=== PATIENT | male | born 1950 | race Caucasian/White ===

== ENCOUNTER → 2023-01-01 11:37 | Outpatient (REF) | payer OTHER, SELFPAY | LOC: WOUND 11:37 | PROVIDERS: ATTENDING PHYSICIAN Surgery; REFERRING PHYSICIAN Physician Assistant Medical | DX: I87.312 Chronic venous hypertension (idiopathic) with ulcer of left lower extremity (principal); L97.822 Non-pressure chronic ulcer of other part of left lower leg with fat layer exposed; I89.0 Lymphedema, not elsewhere classified; I87.2 Venous insufficiency (chronic) (peripheral); I48.19 Other persistent atrial fibrillation; I10 Essential (primary) hypertension; Z79.01 Long term (current) use of anticoagulants; I73.9 Peripheral vascular disease, unspecified | CPT/HCPCS: 11042 ==

== ENCOUNTER → 2023-01-08 10:34 | Outpatient (REF) | payer OTHER, SELFPAY | LOC: WOUND 10:34 | PROVIDERS: ATTENDING PHYSICIAN Surgery; REFERRING PHYSICIAN Physician Assistant Medical | DX: I87.312 Chronic venous hypertension (idiopathic) with ulcer of left lower extremity (principal); L97.822 Non-pressure chronic ulcer of other part of left lower leg with fat layer exposed; I89.0 Lymphedema, not elsewhere classified; I87.2 Venous insufficiency (chronic) (peripheral); I48.19 Other persistent atrial fibrillation; I10 Essential (primary) hypertension; Z79.01 Long term (current) use of anticoagulants; I73.9 Peripheral vascular disease, unspecified | CPT/HCPCS: 11042; 11045 ==

== ENCOUNTER → 2023-01-15 12:51 | Outpatient (REF) | payer OTHER, SELFPAY | LOC: WOUND 12:51 | PROVIDERS: ATTENDING PHYSICIAN Otolaryngology; REFERRING PHYSICIAN Physician Assistant Medical | DX: I87.312 Chronic venous hypertension (idiopathic) with ulcer of left lower extremity (principal); L97.822 Non-pressure chronic ulcer of other part of left lower leg with fat layer exposed; I89.0 Lymphedema, not elsewhere classified; I87.2 Venous insufficiency (chronic) (peripheral); I48.19 Other persistent atrial fibrillation; I10 Essential (primary) hypertension; Z79.01 Long term (current) use of anticoagulants; I73.9 Peripheral vascular disease, unspecified | CPT/HCPCS: 11042; 11045 ==

== ENCOUNTER → 2023-01-21 12:18 | Outpatient (REF) | payer OTHER, SELFPAY | LOC: WOUND 12:18 | PROVIDERS: ATTENDING PHYSICIAN Surgery; REFERRING PHYSICIAN Physician Assistant Medical | DX: I87.312 Chronic venous hypertension (idiopathic) with ulcer of left lower extremity (principal); L97.822 Non-pressure chronic ulcer of other part of left lower leg with fat layer exposed; I89.0 Lymphedema, not elsewhere classified; I87.2 Venous insufficiency (chronic) (peripheral); I48.19 Other persistent atrial fibrillation; I10 Essential (primary) hypertension; Z79.01 Long term (current) use of anticoagulants; I73.9 Peripheral vascular disease, unspecified | CPT/HCPCS: 11042; 11045 ==

== ENCOUNTER → 2023-04-23 12:05 | Outpatient (REF) | payer OTHER, SELFPAY | LOC: WOUND 12:05 | PROVIDERS: ATTENDING PHYSICIAN Surgery; REFERRING PHYSICIAN Physician Assistant Medical | DX: I87.312 Chronic venous hypertension (idiopathic) with ulcer of left lower extremity (principal); L97.822 Non-pressure chronic ulcer of other part of left lower leg with fat layer exposed; I89.0 Lymphedema, not elsewhere classified; I87.2 Venous insufficiency (chronic) (peripheral); I73.9 Peripheral vascular disease, unspecified | CPT/HCPCS: 11042; 11045; 97597; 97598; 99213 ==

== ENCOUNTER → 2023-05-14 11:39 | Outpatient (REF) | payer OTHER, SELFPAY | LOC: WOUND 11:39 | PROVIDERS: ATTENDING PHYSICIAN Surgery; FAMILY PHYSICIAN Physician Assistant Medical | DX: I87.312 Chronic venous hypertension (idiopathic) with ulcer of left lower extremity (principal); L97.822 Non-pressure chronic ulcer of other part of left lower leg with fat layer exposed; I89.0 Lymphedema, not elsewhere classified; I48.19 Other persistent atrial fibrillation; I10 Essential (primary) hypertension; Z79.01 Long term (current) use of anticoagulants; I73.9 Peripheral vascular disease, unspecified | CPT/HCPCS: 97597 ==

== ENCOUNTER → 2023-05-28 11:36 | Outpatient (REF) | payer OTHER, SELFPAY | LOC: WOUND 11:36 | PROVIDERS: ATTENDING PHYSICIAN Surgery; FAMILY PHYSICIAN Physician Assistant Medical | DX: I87.312 Chronic venous hypertension (idiopathic) with ulcer of left lower extremity (principal); L97.822 Non-pressure chronic ulcer of other part of left lower leg with fat layer exposed; I89.0 Lymphedema, not elsewhere classified; I87.2 Venous insufficiency (chronic) (peripheral); I48.19 Other persistent atrial fibrillation; I10 Essential (primary) hypertension; Z79.01 Long term (current) use of anticoagulants; I73.9 Peripheral vascular disease, unspecified | CPT/HCPCS: 99213 ==

== ENCOUNTER → 2023-06-11 12:05 | Outpatient (REF) | payer OTHER, SELFPAY | LOC: WOUND 12:05 | PROVIDERS: ATTENDING PHYSICIAN Surgery; FAMILY PHYSICIAN Physician Assistant Medical | DX: I87.312 Chronic venous hypertension (idiopathic) with ulcer of left lower extremity (principal); L97.822 Non-pressure chronic ulcer of other part of left lower leg with fat layer exposed; I89.0 Lymphedema, not elsewhere classified; I10 Essential (primary) hypertension; I73.9 Peripheral vascular disease, unspecified; Z79.01 Long term (current) use of anticoagulants | CPT/HCPCS: 99213 ==

== ENCOUNTER → 2023-07-02 11:32 | Outpatient (REF) | payer OTHER, SELFPAY | LOC: WOUND 11:32 | PROVIDERS: ATTENDING PHYSICIAN Surgery; FAMILY PHYSICIAN Physician Assistant Medical | DX: I87.312 Chronic venous hypertension (idiopathic) with ulcer of left lower extremity (principal); L97.822 Non-pressure chronic ulcer of other part of left lower leg with fat layer exposed; I89.0 Lymphedema, not elsewhere classified; I87.2 Venous insufficiency (chronic) (peripheral); I48.19 Other persistent atrial fibrillation; I10 Essential (primary) hypertension; I73.9 Peripheral vascular disease, unspecified; Z79.01 Long term (current) use of anticoagulants | CPT/HCPCS: 97597 ==

== ENCOUNTER → 2023-07-23 11:26 | Outpatient (REF) | payer OTHER, SELFPAY | LOC: WOUND 11:26 | PROVIDERS: ATTENDING PHYSICIAN Surgery; FAMILY PHYSICIAN Physician Assistant Medical | DX: I87.312 Chronic venous hypertension (idiopathic) with ulcer of left lower extremity (principal); L97.822 Non-pressure chronic ulcer of other part of left lower leg with fat layer exposed; I89.0 Lymphedema, not elsewhere classified; I87.2 Venous insufficiency (chronic) (peripheral); I48.19 Other persistent atrial fibrillation; I10 Essential (primary) hypertension; I73.9 Peripheral vascular disease, unspecified; Z79.01 Long term (current) use of anticoagulants | CPT/HCPCS: 99212 ==

== ENCOUNTER 2023-08-25 13:25 | Emergency (ER) | payer OTHER, SELFPAY ==
[2023-08-25 13:29] VITALS: BP 109/70
--- NOTE | 2023-08-25 14:59 | ED.GENMED ---
History of Present Illness
General
Chief Complaint: Fall
Source: patient and family
Exam Limitations: none
Time Seen by Provider: 08/25/23 13:49
Travel History
Have you had any contact with someone who has COVID-19?: No
Do you have any symptoms of coronavirus? Fever > 100 degrees, chills, cough, shortness of breath, sore throat, loss of taste or smell, muscle aches, or headache?: No
History of Present Illness
History of Present Illness:
73-year-old male who tripped over a curb and fell. He struck his right head. Patient complains of right hand pain. States his headache is better. Patient is on Eliquis
Past History
Past History
ED Past Medical History: Arrthythmia, HTN and Other (Thyroid cancer, diverticulosis, vomiting ulcerations, migraines)
Social History
Personal:
Phy Exam
Physical Exam
Physical Exam:
CONSTITUTIONAL Vital signs reviewed, Patient alert and oriented to person, place and time. Well-appearing
HEAD abrasion and hematoma noted to the right forehead.
EYES eyelids normal to inspection, Extraocular muscles intact, Conjunctiva normal, Sclera normal.
NECK normal range of motion, Trachea midline, no jugular venous distention. No midline tenderness. C-collar in place
RESP no respiratory distress
BACK No obvious deformities
UPPER EXTREMITY Gross Range of motion normal, gross motor strength normal. Tenderness noted to the right fourth MCP joint posteriorly
LOWER EXTREMITY Gross range of motion normal, Gross motor strength normal
NEURO Speech normal, No focal motor deficits include, Alex coma scale 15, Memory normal, Cranial Nerves intact to screening exam.
SKIN Skin warm, dry, and normal in color.
PSYCHIATRIC Patient oriented to person place and time, Normal affect.
Course
Orders/Labs/Results
Orders:
Orders
08/25/23 13:[address] [CT Head W/o Iv Contrast] Urgent
Comment:
Reason For Exam: fall -landing on head on asphault
08/25/23 13:34
Cervical Spine wo Contrast CT [CT Cervical Spine W/o Iv Contr] Urgent
Comment:
Reason For Exam: fall-head injury
08/25/23 14:33
CR Hand - Right Min 3 Views Urgent
Comment:
Reason For Exam: FALL
Vital Signs
Initial and Last Documented VS:
Initial Vital Signs
Temp Pulse Resp BP Pulse Ox
97.5 F 59 17 109/70 98
08/25/23 13:29 08/25/23 13:29 08/25/23 13:29 08/25/23 13:29 08/25/23 13:29
Last Documented Vital Signs
Temp Pulse Resp BP Pulse Ox
97.5 F 59 17 109/70 98
08/25/23 13:29 08/25/23 13:29 08/25/23 13:29 08/25/23 13:29 08/25/23 13:29
MDM/Problems Addressed
MDM/Problems Addressed:
Head injury, abrasion, hand injury
*Radiology
Radiology exam reviewed: preliminary read by ED provider (No obvious intracranial hemorrhage), radiology read reviewed and other (no hand fx)
*Pulse Oximetry
Patient hypoxic: no
*Critical Care Note
Total Time (30-74mins, 75-104mins- exclusive of procedures): Not Applicable
Data Reviewed
Source: patient and family
Prescriptions/Medications Considered But Not Given:
Considered [facility] but no evidence of intracranial hemorrhage
Patient Management
Escalation/DeEscalation of care consider admission/obs:
Head and neck imaging negative. Await hand imaging. Continue to observe
ED Attending Note
-
Portions of this chart may have been created with voice recognition software.� Occasional wrong word or��sound alike� substitutions may have occurred due to the inherent limitations of voice recognition software.
Discharge Plan
Departure
Patient Disposition: Home (Routine Discharge)
Date of Disposition: 08/25/23
Time of Disposition: 15:25
Patient with high blood pressure during this ER visit?: No
Discharge Problem:
Head injury, Contusion
Instructions: Head Injury in Adults (DC), Contusion (DC)
Prescriptions:
No Action
cod liver oil 1 CAP capsule
1 - 2 capsules PO BID
coenzyme Q10 [Co Q-10] 100 MG capsule
1 cap PO DAILY
levothyroxine 150 MCG tablet
150 mcg PO DAILY
lisinopril 40 MG tablet
40 mg PO DAILY
apixaban [Eliquis] 5 MG tablet
5 mg PO BID
dofetilide 250 MCG capsule
250 mcg PO Q12@1100,2300 Qty: 60 3RF
spironolactone 50 MG tablet
50 mg PO DAILY Qty: 60 2RF
metoprolol succinate 25 MG tablet extended release 24 hr
25 mg PO BID Qty: 60 2RF
Referrals:
Fransisca Richards PA-C [Family Provider] -
Activity Restrictions/Additional Instructions:
Return immediately for vomiting, changes in mentation, weakness of any kind, numbness, tingling or any other concerns.
Interventions
Interventions:
*Risk Screen - Suicide Last Done: 08/25/23 15:15
*General Assessment Last Done: 08/25/23 15:15
*Neglect/Abuse Screening Last Done: 08/25/23 15:15
*ED COVID-19 Vaccine History Last Done: 08/25/23 15:15
ED-Musculoskeletal Assessment Last Done: 08/25/23 15:15
ED- Neurological Assessment Last Done: 08/25/23 15:15
ED-Skin Assessment Last Done: 08/25/23 15:15
Discharge Date and Time
Print Language: POLISH
[2023-08-25 15:40] VITALS: BP 124/73
== END 2023-08-25 15:55 | disposition home or self-care (01) ==
LOC: EMR 13:25
PROVIDERS: EMERGENCY PHYSICIAN Emergency Medicine; FAMILY PHYSICIAN Physician Assistant Medical
DX: S00.81XA Abrasion of other part of head, initial encounter (principal); S09.90XA Unspecified injury of head, initial encounter; W19.XXXA Unspecified fall, initial encounter; I10 Essential (primary) hypertension
CPT/HCPCS: 99284; 70450; 72125; 73130

== ENCOUNTER 2024-01-18 15:23 | Inpatient (IN) | payer OTHER, SELFPAY ==
[2024-01-18] VITALS (7 sets, daily range): BP systolic 106–149; BP diastolic 66–101; BMI 33.9; BMI 34.0
--- NOTE | 2024-01-18 13:43 | ED.GENMED ---
History of Present Illness
General
Chief Complaint: Breathing Problem
Source: patient and spouse
Exam Limitations: none
Time Seen by Provider: 01/18/24 13:32
Nursing documentation reviewed up to this point in time: agreed with
History of Present Illness
History of Present Illness:
73-year-old female presents emergency room complaining of shortness of breath worsening over the past 2 weeks. He had a chest x-ray down and [facility], which showed fluid in the lungs per the patient. [facility] told him to come to the emergency
department to have it drained if his shortness of breath worse.
Past History
Past History
ED Past Medical History: Arrthythmia, HTN and Other (Thyroid cancer, diverticulosis, vomiting ulcerations, migraines)
Social History
Tobacco: Non-smoker
Alcohol: None
Drug: None
Personal:
Review of Systems
Review of Systems
Allergies reviewed?: Yes
All Other Systems: Not applicable
Constitutional: Reports no symptoms
EENT: Reports no symptoms
Respiratory: Reports trouble breathing
Cardiac: Reports no symptoms
ABD/GI: Reports no symptoms
: Reports no symptoms
Musculoskeletal: Reports no symptoms
Skin: Reports no symptoms
Neurological: Reports no symptoms
Endocrine: Reports no symptoms
Hematologic/Lymphatic: Reports no symptoms
Psychiatric: Reports no symptoms
Phy Exam
Physical Exam
Physical Exam:
Physical Exam
General: Afebrile, on 2 L oxygen
Neck: supple. no meningeal signs. normal posterior pharynx
Heart: s1/s2 regular rate and rhythm, no murmur. equal radial
pulses.
HEENT: Pupils equal round reactive to light, EOMI
Lungs: Moderate respiratory distress. Minimal breath sounds left-sided
Abdomen: normal bowel sounds. not tender. no CVAT
Neuro: alert and oriented. no focal neurological deficits cranial nerves II through XII intact
Skin: no rash
Psychiatric: well kept. interactive and cooperative
Extremities: no edema. no calf tenderness. negative homans. good distal pulses
Scores
Heart Failure Risk
Heart Failure Risk Score: Not Applicable
Course
Orders/Labs/Results
Orders:
Orders
01/18/24 13:42
Electrocardiogram (*1) Stat
Reason for Study: Other
Other Reason for Exam: pneumonia
Cardiac Monitoring- Treatment ONCE
EKG- Treatment ONCE
IV Insert/Care/Rem.- Treatment PRN
CR Chest - 2 Views Urgent
Comment:
Reason For Exam: short of breath
01/18/24 13:48
Complete Blood Count/With Diff Urgent
Comprehensive Metabolic Panel Urgent
NT-proBNP Urgent
Troponin I Urgent
Abnormal Lab Results
01/18/24
13:48
RBC 4.61 L 10^6/uL
(4.70-6.10)
Absolute Neuts (auto) 6.7 H 10^3/uL
(1.4-6.5)
Absolute Lymphs (auto) 0.5 L 10^3/uL
(1.2-3.4)
Absolute Monos (auto) 0.7 H 10^3/uL
(0.1-0.6)
Neutrophils % 81.0 H %
(42.2-75.2)
Lymphocytes % 5.9 L %
(20.5-51.1)
BUN 26 H mg/dl
(9-20)
Glucose 108 H mg/dl
(70-99)
AST 14 L U/L
(17-59)
01/18/24 13:48
01/18/24 13:48
Vital Signs
Initial and Last Documented VS:
Initial Vital Signs
Temp Pulse Resp BP Pulse Ox
98.3 F 69 20 106/74 98
01/18/24 11:58 01/18/24 11:58 01/18/24 11:58 01/18/24 11:58 01/18/24 11:58
Last Documented Vital Signs
Temp Pulse Resp BP Pulse Ox
98.3 F 74 16 123/73 97
01/18/24 11:58 01/18/24 13:45 01/18/24 14:06 01/18/24 14:00 01/18/24 13:45
MDM/Problems Addressed
Differential Diagnosis Includes:
Pneumonia, left pleural effusion
MDM/Problems Addressed:
73-year-old male with hypoxia, left pleural effusion. Unclear etiology, possibly malignant admit for further care, and likely thoracentesis
Chronic conditions affecting care: Arrhythmia and Cancer (Thyroid cancer)
Acute Exacerbation and/or Progression of Chronic Illness: Arrhythmia and Cancer
*Radiology
Radiology exam reviewed: preliminary read by ED provider (Chest x-ray large left pleural)
*Pulse Oximetry
Patient hypoxic: yes
*EKG
Interpreted by ED Provider?: Yes
EKG Intrepretation Date: 01/18/24
EKG Intrepretation Time: 14:46
Interpretation: abnormal
Comparison EKG: changes noted
Heart Rate: 76
Rate: normal
Rhythm: sinus and PVC's
[place]: normal axis
Interval: normal interval
QRS Pattern: normal QRS
Ischemia: no ischemia
*Manager Critical Care Interpretation
Rate: normal
Interpretation: normal
Heart Rate: 75
Rhythm: sinus
*Critical Care Note
Total Time (30-74mins, 75-104mins- exclusive of procedures): Not Applicable
Data Reviewed
Review of Other/Old Records Reveals: Radiology Studies (Chest CT from 06/23/2018 shows bilateral thyroid masses, clear lungs)
Source: records
Further Testing Considered But Not Given:
CT chest not indicated at this time
Patient Management
Social determinants of health affecting care: Living situation
Discussion with other providers: Hospitalist
Escalation/DeEscalation of care consider admission/obs:
Admit indicated
ED Attending Note
-
Portions of this chart may have been created with voice recognition software.� Occasional wrong word or��sound alike� substitutions may have occurred due to the inherent limitations of voice recognition software.
Discharge Plan
Departure
Patient Disposition: Admit
Date of Disposition: 01/18/24
Time of Disposition: 14:36
Admit to: Telemetry
Presentation/result/management discussed w/ accepting MD/DO: Hospitalist
Patient with high blood pressure during this ER visit?: Yes
Condition: Fair
Discharge Problem:
Pleural effusion on left
Prescriptions:
No Action
cod liver oil 1 CAP capsule
1 - 2 capsules PO BID
coenzyme Q10 [Co Q-10] 100 MG capsule
1 cap PO DAILY
levothyroxine 150 MCG tablet
150 mcg PO DAILY
lisinopril 40 MG tablet
40 mg PO DAILY
apixaban [Eliquis] 5 MG tablet
5 mg PO BID
dofetilide 250 MCG capsule
250 mcg PO Q12@1100,2300 Qty: 60 3RF
spironolactone 50 MG tablet
50 mg PO DAILY Qty: 60 2RF
metoprolol succinate 25 MG tablet extended release 24 hr
25 mg PO BID Qty: 60 2RF
Referrals:
Fransisca Richards PA-C [Family Provider] -
Interventions
Interventions:
*Risk Screen - Suicide Last Done: 01/18/24 11:58
*General Assessment Last Done: 01/18/24 11:58
*Neglect/Abuse Screening Last Done: 01/18/24 11:58
*ED COVID-19 Vaccine History Last Done: 01/18/24 12:42
ED- Cardiac Assessment Last Done: 01/18/24 12:42
ED- Pulmonary Assessment Last Done: 01/18/24 12:42
Discharge Date and Time
Print Language: AMHARIC
[2024-01-18 14:01] LABS: % Basophils 0.5 % (0-2); % Eosinophils 3.3 % (0-6); % Immature Granulocytes 0.5 % (0-0.5); % Lymphocytes 5.9 % (20.5-51.1); % Monocytes 8.8 % (1.7-9.3); Absolute Eosinophils 0.3 10^3/uL (0-0.7); Absolute Lymphocytes 0.5 10^3/uL (1.2-3.4); Absolute Monocytes 0.7 10^3/uL (0.1-0.6); Absolute Neutrophils 6.7 10^3/uL (1.4-6.5); Hematocrit 39.9 % (39.0-52.0); Hemoglobin 13.5 g/dL (13.0-18.0); Mean Corp Hgb Conc. 33.8 g/dL (33.0-37.0); Mean Corpuscular Hgb 29.3 pg (27.0-31.0); Mean Corpuscular Volume 86.6 fL (80.0-94.0); Mean Platelet Volume 9.8 fL (7.4-10.4); Nucleated Red Blood Cells % 0 % (-); Platelet Count 265 10^3/uL (130-400); Red Blood Cell Count 4.61 10^6/uL (4.70-6.10); White Blood Cell Count 8.3 10^3/uL (4.8-10.8)
[2024-01-18 14:14] LABS: ALT (SGPT) 10 U/L (0-50); AST (SGOT) 14 U/L (17-59); Albumin 3.9 g/dl (3.5-5.0); Alkaline Phosphatase 84 U/L (38-126); Blood Urea Nitrogen 26 mg/dl (9-20); Calcium 9.2 mg/dl (8.4-10.2); Carbon Dioxide 28 mmol/L (22-30); Chloride 102 mmol/L (98-107); Estimated Creatinine Clearance 75 ml/min; Glucose 108 mg/dl (70-99); Potassium 4.8 mmol/L (3.5-5.1); Sodium 141 mmol/L (135-145); Total Protein 6.5 g/dl (6.3-8.2); eGFR > 60.00
[2024-01-18 14:23] LABS: NT-proBNP 347 pg/ml; Troponin I < 0.012 ng/ml
--- NOTE | 2024-01-18 15:00 | HPS.HSE ---
Family Physician
-
Family Physician: Fransisca Richards PA-C
Chief Complaint
-
shortness of breath worsening over the past 2 weeks.
History of Present Illness
[id number] Thyroid CA , HTN . Nl LVEF 60-65 in May 2022 seen at ER for SoB
- shortness of breath worsening over the past 2 weeks.
- CXR at [facility], which showed fluid in the lungs per the patient.
- [facility] told him to come to the emergency department to have it drained if his shortness of breath worse.
Medical History
Past Medical History
Past Medical History: Reports Cancer (Thyroid CA ), HTN and Hypercholesterolemia
Additional Past Medical History:
diverticulosis, vomiting ulcerations, migraines)
Past Surgical History: Reports None
Social History
Tobacco: Non-smoker
Alcohol: None
Personal:
Living: With Family
Family History
Family History: Not pertinent
Allergies / Home Medications
Allergies reflects when Allergies were last updated in [facility].
Home Medications with original date entered in [employer]
Allergy/Medication List:
Allergies
Allergy/AdvReac Type Severity Reaction Status Date / Time
banana Allergy trouble Verified 01/18/24 11:58
breathing
cantaloupe Allergy Hives Uncoded 01/18/24 11:58
Home Medications
apixaban 5 mg tablet (Eliquis) 5 mg PO BID Blood clot prevention/tx 12/08/19
levothyroxine 150 mcg tablet 150 mcg PO DAILY Thyroid 12/08/19
metoprolol succinate 25 mg tablet,extended release 24 hr 25 mg PO BID #60 tabs 12/10/19
spironolactone 50 mg tablet 50 mg PO DAILY #60 tabs 12/10/19
acetaminophen 500 mg tablet (Tylenol Extra Strength) 500 mg PO Q6HPRN PRN mild pain 01/18/24
cyanocobalamin (vitamin B-12) 1,000 mcg tablet 1,000 mcg PO DAILY 01/18/24
dofetilide 250 mcg capsule 250 mcg PO Q12H 01/18/24
glucosamine 375 az-ukrmjyboa-bay no1 500 mg-C 15 mg-yvonne 0.5 mg tablet (Dgzwzbqdrdi-Vqofzpkkawz-NQO Complex) 1 tab PO HS 01/18/24
omega-3 240 dv-xaz-axd-cod liver oil 1,000 mg-vit A-vit D3 capsule (cod liver oil) 1 cap PO BID 01/18/24
Review of Systems
-
Constitutional: Reports No Symptoms
EENT: Reports No Symptoms
Respiratory: Reports See HPI
Cardiac: Reports No Symptoms
Abdomen/GI: Reports No Symptoms
: Reports No Symptoms
Musculoskeletal: Reports No Symptoms
Skin: Reports No Symptoms
Neurological: Reports No Symptoms
Endocrine: Reports No Symptoms
Hematologic/Lymphatic: Reports No Symptoms
Psych: Reports No Symptoms
Physical Exam
Vital Signs
Vital Signs
Temp Pulse Resp BP Pulse Ox
98.3 F 74 16 123/73 97
01/18/24 11:58 01/18/24 13:45 01/18/24 14:06 01/18/24 14:00 01/18/24 13:45
Physical Exam
General: Well Developed, Well Nourished and No Apparent Distress
HEENT: NormoCephalic, Moist mucous membranes and Atraumatic
Respiratory: Other (Moderate respiratory distress. Minimal breath sounds left-sided)
Cardiac: S1/S2 and Regular Rhythm; No Murmur or Rub
GI: Soft, Non Tender, Non Distended and Normal Bowel Sounds; No Organomegaly
Rectal: Deferred by Provider
Musculoskeletal: No Clubbing, No Cyanosis and No Edema
Skin: No Rash
Neuro: AO x 3 and Nonfocal/grossly intact
Hematologic/Lymphatic: No Lymphadenopathy
Psych: Calm
Laboratory Results
-
01/18/24 13:48
01/18/24 13:48
Laboratory Results
Total Bilirubin 1.0 mg/dl (0.2-1.3) 01/18/24 13:48
AST 14 U/L (17-59) L 01/18/24 13:48
ALT 10 U/L (0-50) 01/18/24 13:48
Alkaline Phosphatase 84 U/L (38-126) 01/18/24 13:48
Troponin I < 0.012 ng/ml 01/18/24 13:48
Data Reviewed
-
Diagnostic Radiology: Report Reviewed by me
Lab Data: Labs Reviewed by me
Impression/Plan
-
Vital Signs
Temp Pulse Resp BP Pulse Ox
98.3 F 74 16 123/73 97
01/18/24 11:58 01/18/24 13:45 01/18/24 14:06 01/18/24 14:00 01/18/24 13:45
Data
Unremarkable CBC
Unremarkable BMP
NEG TPNI
Unremarkable proBNP
01/18/24 Pending final CXR report - white out Lt lung - c/w Large Lt pleural effusion
06/05/22 TTE
LVEF 60-65
Nl RV size and function
dilated aortic root @ 4.2 cm
NO PRIOR hospitalist admission:
ASSESSMENT & PLAN
Pending Rx reconciliation
Symptomatic large pleural effusion suspect malignant > > benig=ng
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
- To consider CTC with IV contrast after thoracentesis
- IR consult for Dx-tic and Rx-tic Thoracentesis
- Pul consult
HX Prx AF on ? Eliquis
- Held Eliquis for tonight and in AM
- on Dofetilide ? on Metoprolol ?
Essential HTN on Lisinopril ? metoprolol ? Aldactone ?
Hypothyroid on LT4
HX Thyroid CA s/p total thyroidectomy 5 yrs ago
1 yr ago note Pul nodules . POS Biopsy for met thyroid CA
- f/u [facility] pending chemo
Chr conditions [employer]; Pending Rx reconciliation
Diverticulosis
HX Migraines
DVT Px: on Eliquis
Code: full
IP TLM
--- NOTE | 2024-01-18 17:20 | CON.PUL ---
Consultation
Consultation Request
Date/Time Consultation Requested: 01/18/2024 - 1656
Date/Time Consultation Performed: 01/18/2024 - 1703
Requesting Provider: Dr. Knowles
Performing Provider: Dr. Lao
Reason for Consultation: Large left-sided pleural effusion
Medical History
-
Chief Complaint: Worsening shortness of breath x 2 weeks
History of Present Illness:
73-year-old male with a past medical history of papillary thyroid carcinoma s/p STOVER x 2, thyroidectomy + XRT (treated at [facility]), hypertension, chronic lower extremity lymphedema, paroxysmal A-fib on Eliquis and bilateral cataracts who presents with
worsening SOB X 2 weeks. Patient follows at [facility] for thyroid cancer. He apparently had a chest x-ray about 1 month ago showing a small left-sided pleural effusion. He is also been told that he has spots in his lungs that have
been biopsied before and they have been positive for his thyroid cancer. Reportedly, his last lung biopsy was in 2022. His shortness of breath had started about 2 weeks ago. He continues to be short of breath with exertion. Denies a cough,
fevers, chills or chest pain. He is normally on Eliquis for history of A-fib but he has been holding it now since yesterday as he was told that he may need a thoracentesis. He was directed to come here from his doctors at [facility]. In the ER he
was afebrile to 98.3 �F, pulse rate 69, breathing at 20 breaths/min, BP 106/74 and saturating 98% on room air. Labs were significant for proBNP 347 and troponin negative at <0.012. CXR showed a complete left-sided hemithorax opacification likely
reflecting a combination of atelectasis, pleural fluid and possibly pneumonia. He was admitted to the hospitalist service and IR has been consulted. Pulmonary also now consulted for additional management/recommendations.
When I saw the patient he was resting in bed in no acute distress with his , Janay, at bedside. He currently feels okay at rest but as soon as he starts to exert himself he feels very short of breath. Last CT chest done here at [facility] was
in June 2018 which did not show any pleural effusions. There was mild bronchiectasis in the medial left lower lobe. At that time there was a mass contiguous with the right lobe of the thyroid gland extending to the anterior mediastinum measuring
3.9 x 3 x 3.2 cm. There also was a large mass occupying the left lobe of the thyroid gland with indistinct margins measuring 4.4 x 2.8 x 3.8 cm. He has had additional imaging done at [facility]. He currently denies chest pain,
fevers, chills, cough.
PMHx: Lower extremity lymphedema, hypertension, thyroid cancer, paroxysmal A-fib on Eliquis, bilateral cataracts
PShx: Vein removal, thyroidectomy, wisdom teeth surgery, unsuccessful laryngectomy, cardioversion
Past Medical History
Past Medical History: Other (Above as per HPI)
Past Surgical History: Other (Above as per HPI)
Social History
Tobacco: Non-smoker
Alcohol: None
Drug: None
Personal:
Living: With Family
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
Family History
Family History: CAD (Mother; Maternal grandfather + paternal grandfather: Heart attack), Cancer (Father: Prostate cancer + leukemia), Hypertension (Mother) and Other (Maternal grandfather:)
Allergies / Home Medications
Allergies
Allergy/AdvReac Type Severity Reaction Status Date / Time
banana Allergy trouble Verified 01/18/24 11:58
breathing
cantaloupe Allergy Hives Uncoded 01/18/24 11:58
Home Medications
�Medication �Instructions �Recorded �Confirmed �Last Taken �Type
apixaban 5 mg tablet (Eliquis) 5 mg PO BID Blood clot 12/08/19 01/18/24 01/17/24 History
prevention/tx
levothyroxine 150 mcg tablet 150 mcg PO DAILY Thyroid 12/08/19 01/18/24 01/17/24 History
metoprolol succinate 25 mg 25 mg PO BID #60 tabs 12/10/19 01/18/24 01/17/24 Rx
tablet,extended release 24 hr
spironolactone 50 mg tablet 50 mg PO DAILY #60 tabs 12/10/19 01/18/24 01/17/24 Rx
acetaminophen 500 mg tablet 500 mg PO Q6HPRN PRN mild pain 01/18/24 01/18/24 01/17/24 History
(Tylenol Extra Strength)
cyanocobalamin (vitamin B-12) 1,000 mcg PO DAILY 01/18/24 01/18/24 01/17/24 History
1,000 mcg tablet
dofetilide 250 mcg capsule 250 mcg PO Q12H 01/18/24 01/18/24 01/17/24 History
glucosamine 375 nw-bbktcsfnl-cpx 1 tab PO HS 01/18/24 01/18/24 01/17/24 History
no1 500 mg-C 15 mg-yvonne 0.5 mg
tablet
(Wnavarxzkom-Vwwnadhzkrd-LAN
Complex)
omega-3 240 jw-wrm-tyl-cod liver 1 cap PO BID 01/18/24 01/18/24 01/17/24 History
oil 1,000 mg-vit A-vit D3 capsule
(cod liver oil)
Review of Systems
-
History Source: Patient
All other systems: Negative unless noted
Vitals / Labs / Diagnostic Testing
Vital Signs
Temp Pulse Resp BP Pulse Ox
97.7 F 80 22 117/66 96
01/18/24 17:05 01/18/24 17:05 01/18/24 17:05 01/18/24 17:05 01/18/24 17:20
Lab Data
01/18/24 16:57
01/18/24 16:57
Diagnostic Testing:
Physical Exam
-
HEENT: Normocephalic and Anicteric
Cardiovascular: Irregular Rhythm (Irregularly irregular) and Peripheral Edema (+2 lower extremity edema bilaterally)
Respiratory: Wheeze (negative), Rales (Left middle lung field), Rhonchi (negative), Non-Labored Respirations and Other (Markedly diminished breath sounds in the left hemithorax with dullness to percussion)
GI: Soft, Distended (Abdominal obesity), Non Tender, Normal Bowel Sounds and Other
Neurology: AO x 3 and Tremors (negative)
Skin: Warm and Dry
General: Respiratory Distress (negative), Comfortable, Chills (negative) and Sweats (negative)
Assessment
-
Assessment: 73-year-old male with a past medical history of thyroid cancer (reportedly papillary thyroid carcinoma) s/p STOVER x 2, thyroidectomy + XRT (treated at [facility]), hypertension, chronic lower extremity lymphedema, paroxysmal A-fib on Eliquis
and bilateral cataracts who presents with worsening SOB X 2 weeks. Patient follows at [facility] for thyroid cancer. He apparently had a chest x-ray about 1 month ago showing a small left-sided pleural effusion. He is also been told
that he has spots in his lungs that have been biopsied before and they have been positive for his thyroid cancer. Reportedly, his last lung biopsy was in 2022. His shortness of breath had started about 2 weeks ago. He continues to be short of
breath with exertion. Denies a cough, fevers, chills or chest pain. He is normally on Eliquis for history of A-fib but he has been holding it now since yesterday as he was told that he may need a thoracentesis. He was directed to come here from
his doctors at [facility]. In the ER he was afebrile to 98.3 �F, pulse rate 69, breathing at 20 breaths/min, BP 106/74 and saturating 98% on room air. Labs were significant for proBNP 347 and troponin negative at <0.012. CXR showed a complete
left-sided hemithorax opacification likely reflecting a combination of atelectasis, pleural fluid and possibly pneumonia. He was admitted to the hospitalist service and IR has been consulted. Pulmonary also now consulted for additional
management/recommendations.
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
Impression:
#Large left-sided pleural effusion suspicious for malignancy (likely related to his known history of metastatic thyroid carcinoma)
#History of thyroid cancer (reported to be papillary thyroid carcinoma) s/p STOVER x 2, thyroidectomy + XRT (underwent 33 treatments)
#Paroxysmal A-fib on Eliquis
#Hypothyroidism
#Hypertension
Plan:
- IR consult for urgent left-sided thoracentesis
- Continue to hold Eliquis until after thoracentesis
- Send fluid for cytology, cultures, pH, glucose, LDH, protein, albumin and cell count with differential
- After thoracentesis is done then would immediately check a CT chest without contrast to assess if any lesions are in the lung parenchyma that could have contributed/cause this pleural effusion
- Given his history of metastatic thyroid cancer, this is likely a malignant effusion. If pleural fluid is transudative with no lesion seen on CT chest s/p thoracentesis, then would check a echo and consider cardiology consult
- Maintain SpO2 >90-94% with supplemental O2 and wean down as tolerated
- Incentive spirometer encouraged
- Keep HR<110
- MAP>65
- Replete electrolytes with K>4, Mg>2
- Maintain euglycemia with goal BG >100 and <180
- prn nebulized bronchodilators - not currently bronchospastic
- DVT ppx: SCDs for now; resume Eliquis after thoracentesis is performed assuming no bloody output and stable H/H
Pulmonary service will continue to follow along. He should continue following along with the doctors at [facility], unless he wants to see us in the office then he is more than welcome to. Our office information will be left with the
patient so that he can make his own decision.
Data:
CXR 01/18/2024: Complete left hemithorax opacification which may reflect combination of atelectasis, pneumonia and pleural effusion. Probable CHF.
Total time spent today was 58 minutes for this encounter. Time includes reviewing laboratory test/imaging results, reviewing pertinent medical records, obtaining and reviewing medical history, performing an appropriate exam, ordering medications,
tests and procedures. Time also includes documentation of this encounter, coordinating patient care and communicating with other healthcare professionals. Total time does not include separately billed tests performed on this date of service.
[2024-01-18] MEDS: TIKOSYN 250 MCG PO (17:47)
[2024-01-18] MEDS: TOPROL XL 25 MG PO (19:28)
[2024-01-19] VITALS (11 sets, daily range): BP systolic 58–137; BP diastolic 71–106; BMI 32.7
[2024-01-19] MEDS: SYNTHROID 150 MCG PO (05:15)
[2024-01-19] MEDS: TIKOSYN 250 MCG PO ×2 (05:15→16:49)
--- NOTE | 2024-01-19 05:19 | PTCARENOTE ---
Pt wears bilat lower leg wraps for lymhedema. SCD's unable to be placed over these wraps. Will ask dayshift to discuss with attending to see if SCDs necessary.
[2024-01-19 06:04] LABS: Mean Corp Hgb Conc. 33.3 g/dL (33.0-37.0); Mean Corpuscular Hgb 29.1 pg (27.0-31.0); Mean Corpuscular Volume 87.2 fL (80.0-94.0); Mean Platelet Volume 9.8 fL (7.4-10.4); Platelet Count 253 10^3/uL (130-400); Red Blood Cell Count 4.47 10^6/uL (4.70-6.10); Red Cell Dist. Width 14.1 % (11.5-14.5)
[2024-01-19 06:26] LABS: Blood Urea Nitrogen 27 mg/dl (9-20); Calcium 9.1 mg/dl (8.4-10.2); Carbon Dioxide 29 mmol/L (22-30); Chloride 101 mmol/L (98-107); Estimated Creatinine Clearance 83 ml/min; Glucose 117 mg/dl (70-99); LDH 120 U/L (120-246); Potassium 4.8 mmol/L (3.5-5.1); Sodium 139 mmol/L (135-145); eGFR > 60.00
[2024-01-19 06:57] LABS: TSH 0.09 uIU/ml (0.47-4.68)
[2024-01-19] MEDS: ALDACTONE 50 MG PO (09:01)
[2024-01-19] MEDS: TOPROL XL 25 MG PO ×2 (09:01→19:29)
--- NOTE | 2024-01-19 09:18 | W.PN.PUL3 ---
Today's Communication / Plan
-
s/p thoracentesis today, removing 2 L of exudative pleural fluid likely reflecting malignant effusion due to metastatic thyroid carcinoma
Recommend oncology consult
Innumerable bilateral metastatic lesion seen on CT chest without pathological lymphadenopathy
Follow-up pleural fluid studies including cultures + cytopathology
He may be a candidate for Pleurx depending on the reaccumulation rate of left-sided pleural effusion
Wean down supplemental O2 flow rate as tolerated, keeping SpO2 >90-94%
Check walking pulse oximetry prior to discharge
Pulmonary service will continue to follow along
Assessment
-
Assessment: 73-year-old male with a past medical history of thyroid cancer (reportedly papillary thyroid carcinoma) s/p STOVER x 2, thyroidectomy + XRT (treated at [facility]), hypertension, chronic lower extremity lymphedema, paroxysmal A-fib on Eliquis
and bilateral cataracts who presents with worsening SOB X 2 weeks. Patient follows at [facility] for thyroid cancer. He apparently had a chest x-ray about 1 month ago showing a small left-sided pleural effusion. He is also been told
that he has spots in his lungs that have been biopsied before and they have been positive for his thyroid cancer. Reportedly, his last lung biopsy was in 2022. His shortness of breath had started about 2 weeks ago. He continues to be short of
breath with exertion. Denies a cough, fevers, chills or chest pain. He is normally on Eliquis for history of A-fib but he has been holding it now since yesterday as he was told that he may need a thoracentesis. He was directed to come here from
his doctors at [facility]. In the ER he was afebrile to 98.3 �F, pulse rate 69, breathing at 20 breaths/min, BP 106/74 and saturating 98% on room air. Labs were significant for proBNP 347 and troponin negative at <0.012. CXR showed a complete
left-sided hemithorax opacification likely reflecting a combination of atelectasis, pleural fluid and possibly pneumonia. He was admitted to the hospitalist service and IR has been consulted. Pulmonary also now consulted for additional
management/recommendations.
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
Impression:
#Large left-sided pleural effusion likely due to malignancy (likely related to his known history of metastatic thyroid carcinoma)
#Innumerable bilateral nodules due to suspected metastatic disease with residual left-sided moderate�large pleural effusion s/p thoracentesis (done on 01/19/2024)
#History of thyroid cancer (reported to be papillary thyroid carcinoma) s/p STOVER x 2, thyroidectomy + XRT (underwent 33 treatments)
#Paroxysmal A-fib on Eliquis
#Hypothyroidism
#Hypertension
Plan:
- IR consult for urgent left-sided thoracentesis --> performed today removing 2L of hemorrhagic pleural fluid, monocyte predominant with 73.9% monos, glucose 106, LDH 196 and triglyceride: 37; pH: 7.41
- Ok to resume Eliquis now that he has undergone thora
- CT chest done today (01/18) after thoracentesis showing innumerable bilateral pulmonary metastatic nodules, measuring up to 3.2 cm in diameter, without pathological mediastinal lymphadenopathy or axillary lymphadenopathy. Still has a left-sided
effusion which is mild-moderate in size ---> follow up pleural fluid studies including cultures and cytopathology.
- He may need a repeat thoracentesis to help drain the remainder of the left-sided fluid however given that this is suspected to be a malignant effusion, depending on the rate of reaccumulation he may be a candidate for Pleurx
- Recommend oncology consult
- Maintain SpO2 >90-94% with supplemental O2 and wean down as tolerated
- Incentive spirometer encouraged
- Keep HR<110
- MAP>65
- Replete electrolytes with K>4, Mg>2
- Maintain euglycemia with goal BG >100 and <180
- Obtain medical records from prior care done at [facility]
- prn nebulized bronchodilators - not currently bronchospastic
- DVT ppx: Ok to resume Eliquis now that he is s/p thoracentesis; pt now on HSQ for now
Pulmonary service will continue to follow along. He should continue following along with the doctors at [facility], unless he wants to see us in the office then he is more than welcome to. Our office information will be left with the
patient so that he can make his own decision.
Data:
CXR 01/18/2024: Complete left hemithorax opacification which may reflect combination of atelectasis, pneumonia and pleural effusion. Probable CHF.
CT chest without contrast 01/19/2024:
1. Innumerable bilateral pulmonary metastasis, metastases measuring up to 3.2 cm in diameter.
2. Small left pleural effusion, likely with some loculation along the left lateral chest wall. Nodularity of the left-sided pleura, suggestive of pleural metastasis.
3. Airspace consolidation at the left lung base, likely reflective of compressive atelectasis.
4. Post thyroidectomy.
Total time spent today was 38 minutes for this encounter. Time includes reviewing laboratory test/imaging results, reviewing pertinent medical records, obtaining and reviewing medical history, performing an appropriate exam, ordering medications,
tests and procedures. Time also includes documentation of this encounter, coordinating patient care and communicating with other healthcare professionals. Total time does not include separately billed tests performed on this date of service.
Subjective Data
-
Date of Service:
Date of Service: January 19, 2024
Chief Complaint: Pulmonary Follow Up
Subjective:
Patient seen and evaluated today at bedside. Underwent thoracentesis today, removing 200 cc of hemorrhagic pleural fluid. CXR post-thoracentesis showed a residual moderate�large effusion with compressive atelectasis. Also pulmonary nodule seen
bilaterally suspicious for metastatic disease. He says he feels much better since the thoracentesis, currently on 2 L/min nasal cannula breathing comfortably. No acute issues reported from overnight. He denies chest pain, shoulder pain, RODRIGUEZ,
abdominal pain, nausea, fevers or chills.
Review of Systems
General: Other (Negative unless mentioned above)
Objective Data
Data Reviewed
Vital Signs / I&O / Oxygen:
Vital Signs
Temp Pulse Resp BP Pulse Ox
98.5 F 70 22 126/70 95
01/19/24 07:05 01/19/24 07:05 01/19/24 07:05 01/19/24 09:01 01/19/24 09:03
Intake and Output
01/18/24 01/19/24 01/20/24
06:59 06:59 06:59
Output Total 225 / 225
Balance -225 / -225
SaO2 95
Nasal Cannula flow liters per 2
minute
Physical Exam
General: Respiratory Distress (negative), Comfortable, Chills (negative) and Sweats (negative)
HEENT: Normocephalic and Anicteric
Cardiovascular: Irregular Rhythm (Irregularly irregular), Peripheral Edema (+1 lower extremity pitting edema bilaterally) and Other (normal rate)
Respiratory: Wheeze (negative), Crackles (Left middle lung field posteriorly), Rhonchi (negative), Non-Labored Respirations and Other (Diminished breath sounds in the left lower lung field-left middle lung field with dullness to percussion)
GI: Soft, Non Distended, Non Tender and Normal Bowel Sounds
Neurology: AO x 3 and Tremors (negative)
Skin: Warm, Dry, Cyanosis (negative) and Jaundice (negative)
Labs/Micro/Reports
Lab Data
01/19/24 05:37
01/19/24 05:37
--- NOTE | 2024-01-19 09:46 | W.PN.HOSP.TC ---
Today's Communication/Plan
-
See PN
Assessment / Plan
Assessment / Plan
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 SAme seen in [facility] on recent XR and patient was recommended to come to ED if he will develop symptoms.
A/P:
#Acute hypoxic respiratory insufficiency 2/2 L pleural effusion
IRAD for thoracentesis, send labs
Pulm followed
wean off O2 as tolerated
#Thyroid CA
#Iatrogenic hypothyroidism
cont to follow in [facility]
cont home meds
#Afib, unspecified
cont home meds
Restart Eliquis after procedure
DVT ppx hep
full code
I have spent at least 38min reviewing chart, test results, communication with consultants and direct patient care
Anticipated Discharge: Within 24 hours
Subjective/Interval History
-
Date of Service: January 19, 2024
Objective Data
-
Labs:
Laboratory Results
01/19/24
05:37
WBC 8.0
Hgb 13.0
Hct 39.0
Plt Count 253
Sodium 139
Potassium 4.8
Chloride 101
Carbon Dioxide 29
BUN 27 H
Creatinine 1.0
Glucose 117 H
Calcium 9.1
Vital Signs:
Vital Signs
Temp Pulse Resp BP Pulse Ox
98.5 F 70 22 126/70 95
01/19/24 07:05 01/19/24 07:05 01/19/24 07:05 01/19/24 09:01 01/19/24 09:03
I&O
01/18/24 01/19/24 01/20/24
06:59 06:59 06:59
Output Total 225 / 225
Balance -225 / -225
Review of Systems
-
History Source: Patient
All other systems: Reviewed and negative
Respiratory: Reports Trouble Breathing
Physical Exam
-
General: Well Developed and Well Nourished
HEENT: Normocephalic and Atraumatic
Respiratory: Decreased Breath Sounds (L); Negative Wheezes
Cardiac: Regular Rhythm
GI: Soft, Nontender and Nondistended
Neuro: Awake, Alert, Oriented and AO x 3
Psych: Calm
--- NOTE | 2024-01-19 10:20 | CM ---
Addendum entered by Magali Carballo 01/19/24 10:27:
PCP: Fransisca Richards
Pharmacy: [facility]
Original Note:
Patient seen at bedside with Janay
DX: Large symptomatic left sided pleural effusion
Hx: lymphedema, afib on eliquis, HTN
IA completed
Lives at home with his in a 2 story home, 4 steps to enter, flight of steps to second floor
PLOF: Independent, does not use assistive device, drives
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
PT screen
Denies past VN and Rehab
currently no needs
PLAN: Home, currently no needs
[2024-01-19 12:02] LABS: Body Fluid pH 7.41
[2024-01-19 12:10] LABS: Body Fluid WBC 785 /CUMM
[2024-01-19 12:11] LABS: Body Fluid Mononuclear 73.9 %; Body Fluid Polymorphonuclear 26.1 %
[2024-01-19 12:12] LABS: Body Fluid Second Tech CS
[2024-01-19 12:17] LABS: Body Fluid Amylase < 30 U/L; Body Fluid Glucose 106 mg/dl; Body Fluid LDH 196 U/L; Body Fluid Protein 4.6 g/dl; Body Fluid Triglycerides 37 mg/dl
--- NOTE | 2024-01-19 12:28 | PTCARENOTE ---
Patient arrived back to floor post L sided Thoracentesis. Bandage CDI.
[2024-01-19] MEDS: HEPARIN 5000 UNITS SC ×2 (16:44→23:07)
[2024-01-20 03:33] VITALS: BP 104/64
[2024-01-20] MEDS: SYNTHROID 150 MCG PO (05:28)
[2024-01-20] MEDS: TIKOSYN 250 MCG PO (05:28)
[2024-01-20 06:00] VITALS: BMI 33.0
[2024-01-20 06:45] VITALS: BP 119/65
[2024-01-20] MEDS: HEPARIN 5000 UNITS SC (09:21)
[2024-01-20] MEDS: ALDACTONE 50 MG PO (09:21)
[2024-01-20] MEDS: TOPROL XL 25 MG PO (09:21)
--- NOTE | 2024-01-20 09:32 | W.PN.PUL3 ---
Today's Communication / Plan
-
Discussed pleural fluid and management, cyto still pending
Presumed malignant fluid, and can eval for ASEPT placement if needed
He is currently on RA, no new complaints
[facility] fluid, he voiced understanding
Discharge planning per team
We will leave information in chart for FU if patient desires at
Assessment
-
73-year-old male with a past medical history of thyroid cancer (reportedly papillary thyroid carcinoma) s/p STOVER x 2, thyroidectomy + XRT (treated at [facility]), hypertension, chronic lower extremity lymphedema, paroxysmal A-fib on Eliquis and bilateral
cataracts who presents with worsening SOB X 2 weeks. Patient follows at [facility] for thyroid cancer. He apparently had a chest x-ray about 1 month ago showing a small left-sided pleural effusion. He is also been told that he has
spots in his lungs that have been biopsied before and they have been positive for his thyroid cancer. Reportedly, his last lung biopsy was in 2022. His shortness of breath had started about 2 weeks ago. He continues to be short of breath with
exertion. Denies a cough, fevers, chills or chest pain. He is normally on Eliquis for history of A-fib but he has been holding it now since yesterday as he was told that he may need a thoracentesis. He was directed to come here from his doctors
at [place]. In the ER he was afebrile to 98.3 �F, pulse rate 69, breathing at 20 breaths/min, BP 106/74 and saturating 98% on room air. Labs were significant for proBNP 347 and troponin negative at <0.012. CXR showed a complete left-sided
hemithorax opacification likely reflecting a combination of atelectasis, pleural fluid and possibly pneumonia. He was admitted to the hospitalist service and IR has been consulted. Pulmonary also now consulted for additional
management/recommendations.
Chronic conditions [employer]: Lower extremity lymphedema, hypertension, thyroid cancer, paroxysmal A-fib on Eliquis, bilateral cataracts
Impression:
#Large left-sided pleural effusion likely due to malignancy (likely related to his known history of metastatic thyroid carcinoma)
#Innumerable bilateral nodules due to suspected metastatic disease with residual left-sided moderate�large pleural effusion s/p thoracentesis (done on 01/19/2024)
#History of thyroid cancer (reported to be papillary thyroid carcinoma) s/p STOVER x 2, thyroidectomy + XRT (underwent 33 treatments)
#Paroxysmal A-fib on Eliquis
#Hypothyroidism
#Hypertension
Plan:
Currently 94% on RA
Maintain SpO2 >90-94% with supplemental O2 and wean down as tolerated
Incentive spirometer encouraged
IR consult for urgent left-sided thoracentesis 01/19/24 --> 2L of hemorrhagic pleural fluid, monocyte predominant with 73.9% monos, glucose 106, LDH 196 and triglyceride: 37; pH: 7.41
Ok to resume Eliquis now that he has undergone thora
Culture negative thus far
Cyto pending
He has confirmed results of lung nodule biopsy confirming metastatic thyroid disease at [facility]
If pleural fluid confirms malignant cause, can consider asept placement if ongoing/symptomatic
This can be followed as OP
CT chest done today (01/18) after thoracentesis showing innumerable bilateral pulmonary metastatic nodules, measuring up to 3.2 cm in diameter, without pathological mediastinal lymphadenopathy or axillary lymphadenopathy. Still has a left-sided
effusion which is mild-moderate in size ---> follow up pleural fluid studies - cytopathology.
He may need a repeat thoracentesis to help drain the remainder of the left-sided fluid however given that this is suspected to be a malignant effusion, depending on the rate of reaccumulation he may be candidate for Pleurx
History of thyroid cancer
Obtain medical records from prior care done at [facility]
PT/OT, OOB
Replete electrolytes with K>4, Mg>2
Maintain euglycemia with goal BG >100 and <180
prn nebulized bronchodilators - not currently bronchospastic
DVT ppx: Ok to resume Eliquis now that he is s/p thoracentesis; pt now on HSQ for now
Pulmonary service will continue to follow along. He should continue following along with the doctors at [facility], unless he wants to see us in the office then he is more than welcome to. Our office information will be left with the
patient so that he can make his own decision.
Data:
CXR 01/18/2024: Complete left hemithorax opacification which may reflect combination of atelectasis, pneumonia and pleural effusion. Probable CHF.
CT chest without contrast 01/19/2024:
1. Innumerable bilateral pulmonary metastasis, metastases measuring up to 3.2 cm in diameter.
2. Small left pleural effusion, likely with some loculation along the left lateral chest wall. Nodularity of the left-sided pleura, suggestive of pleural metastasis.
3. Airspace consolidation at the left lung base, likely reflective of compressive atelectasis.
4. Post thyroidectomy.
ECHO 06/05/22- LV ejection fraction is 60-65%. No regional wall motion abnormalities are seen. Normal right ventricular size and function. No significant valvular disease. Dilated aortic root at 4.4 cm.
Compared to previous echo on 04/25/2021, the aortic root has minimally enlarged (previously 4.2 cm).
-----
Total time spent today was 50 minutes for this encounter. Time includes reviewing laboratory test/imaging results, reviewing pertinent medical records, obtaining and reviewing medical history, performing an appropriate exam, ordering medications,
tests and procedures. Time also includes documentation of this encounter, coordinating patient care and communicating with other healthcare professionals. Total time does not include separately billed tests performed on this date of service.
Subjective Data
-
Date of Service:
Date of Service: January 20, 2024
Chief Complaint: Pulmonary Follow Up
Subjective:
no issues overnight, stable on RA
no new complaints
Objective Data
Data Reviewed
Vital Signs / I&O / Oxygen:
Vital Signs
Temp Pulse Resp BP Pulse Ox
97.5 F 65 20 119/65 94
01/20/24 06:45 01/20/24 06:45 01/20/24 06:45 01/20/24 06:45 01/20/24 06:45
Intake and Output
01/19/24 01/20/24 01/21/24
06:59 06:59 06:59
Intake Total 720 / 720
Output Total 225 / 225 875 / 875
Balance -225 / -225 -155 / -155
SaO2 94
Nasal Cannula flow liters per 2
minute
Physical Exam
General: Respiratory Distress (negative), Comfortable, Chills (negative) and Sweats (negative)
HEENT: Normocephalic and Anicteric
Cardiovascular: Irregular Rhythm (Irregularly irregular), Peripheral Edema (+1 lower extremity pitting edema bilaterally) and Other (normal rate)
Respiratory: Wheeze (negative), Crackles (Left middle lung field posteriorly), Rhonchi (negative), Non-Labored Respirations and Other (Diminished breath sounds in the left lower lung field-left middle lung field with dullness to percussion)
GI: Soft, Non Distended, Non Tender and Normal Bowel Sounds
Neurology: Awake, Alert, Oriented, No Motor Deficits and Tremors (negative)
Skin: Warm, Dry, Cyanosis (negative) and Jaundice (negative)
Labs/Micro/Reports
Lab Data
01/19/24 05:37
01/19/24 05:37
Microbiology
01/19/24 11:23 Pleural Fluid Gram Stain - Preliminary
--- NOTE | 2024-01-20 10:29 | W.PN.HOSP.TC ---
Today's Communication/Plan
-
home O2 assessment and D/C
Assessment / Plan
Assessment / Plan
73yo M with PMHx of Afib on Eliquis, thyroid CA s/p STOVER, thyroidectomy, HTN, LE lymphedema came with SOB, found large L pleural effusion. Same seen in [facility] on recent XR and patient was recommended to come to ED if he will develop symptoms. Patient
already followed with [facility] for 5 years now and was found pulmonary metastasis few years back. Patient will follow up with his oncologist in [facility] upon d/c. If fluid to reaccumulate - might need Pleurx. Patient to monitor his symptoms at home.
A/P:
#Acute hypoxic respiratory insufficiency 2/2 L pleural effu with Hx of lung metastasis
#Atelectasis
Spirometry
[facility] did thoracentesis on 01/19/24 with improvement of hypoxia. Exudate by Lights criteria.
Pulm followed: assess for outpatient O2 need upon d/c.
Patient will follow with Oncologist in [facility]
wean off O2 as tolerated
#Thyroid CA
#Iatrogenic hypothyroidism
cont to follow in [facility]
cont home meds
#Afib, unspecified
cont home meds
Restart Eliquis after procedure
DVT ppx hep
full code
I have spent at least 38min reviewing chart, test results, communication with consultants and direct patient care
Anticipated Discharge: Within 24 hours
Subjective/Interval History
-
Date of Service: January 20, 2024
Objective Data
-
Vital Signs:
Vital Signs
Temp Pulse Resp BP Pulse Ox
97.5 F 66 20 122/66 94
01/20/24 06:45 01/20/24 09:21 01/20/24 06:45 01/20/24 09:21 01/20/24 09:15
I&O
01/19/24 01/20/24 01/21/24
06:59 06:59 06:59
Intake Total 720 / 720
Output Total 225 / 225 875 / 875
Balance -225 / -225 -155 / -155
Review of Systems
-
History Source: Patient
All other systems: Reviewed and negative
Physical Exam
-
General: No Apparent Distress
HEENT: Normocephalic
Respiratory: Decreased Breath Sounds (L)
Cardiac: Regular Rhythm
GI: Soft, Nontender and Nondistended
Musculoskeletal: No Clubbing, No Cyanosis and No Edema
Neuro: Awake, Alert, Oriented and AO x 3
Psych: Calm
[2024-01-20 11:28] VITALS: BP 122/73
--- NOTE | 2024-01-20 11:53 | W.DCSUMMARY ---
Discharge Summary
Discharge Data
Date of Admission: 01/18/24
Date of Discharge: 01/20/24
-
Pending Results: Yes
Additional Pending Results:
Cytopathology pleural fluid
Hospital Course
73yo M with PMHx of Afib on Eliquis, thyroid CA s/p STOVER, thyroidectomy, HTN, LE lymphedema came with SOB, found large L pleural effusion. Same seen in [facility] on recent XR and patient was recommended to come to ED if he will develop symptoms. Patient
already followed with [facility] for 5 years now and was found pulmonary metastasis few years back. Patient will follow up with his oncologist in [facility] upon d/c as well as [facility] should request results of the pathoilogy from - patient verbalized
understanding of the instructions. If fluid to reaccumulate - might need Pleurx. Patient to monitor his symptoms at home. Was remaining on RA with pulse O2 sat >90% on ambulation on the day of d/c.
Medically stable for d/c
I have spent at least 38min discharging the patient
Patient was managed for:
#Acute hypoxic respiratory insufficiency 2/2 L pleural effu with Hx of lung metastasis
#Atelectasis
#Thyroid CA
#Iatrogenic hypothyroidism
#Afib, unspecified
Discharge Plan
-
Patient Disposition: Home (Routine Discharge)
Discharge Diagnosis/Procedures: MAlignant effusion
Diet: Regular
Activity: As tolerated
Referrals:
Fransisca Richards PA-C [Family Provider] -
Prescriptions:
Continued
levothyroxine 150 MCG tablet
150 mcg PO DAILY
Eliquis 5 MG tablet
5 mg PO BID
spironolactone 50 MG tablet
50 mg PO DAILY Qty: 60 2RF
metoprolol succinate 25 MG tablet extended release 24 hr
25 mg PO BID Qty: 60 2RF
cyanocobalamin (vitamin B-12) 1,000 mcg Tablet
1,000 mcg PO DAILY
acetaminophen [Tylenol Extra Strength] 500 mg Tablet
500 mg PO Q6HPRN PRN (Reason: mild pain)
Lyaeunlgoff-Hvltz-JUZ Complex 957-942-39-0.5 mg Tablet
1 tab PO HS
cod liver oil 240-1,000 mg Capsule
1 cap PO BID
dofetilide 250 MCG capsule
250 mcg PO Q12H
Discharge Orders:
Discharge Patient (As Directed); Ordered 01/20/24
Ordered By: Rolando Acuna
Discharge Date and Time
Print Language: CROATIAN
--- NOTE | 2024-01-20 12:32 | CM ---
Patient seen at bedside. Patient stated that he is ready for discharge and IMM completed and signed form placed on chart. Patient states he has a ride home. CM will continue to follow for discharge planning needs.
Plan; home with no needs.
--- NOTE | 2024-01-20 14:27 | PTCARENOTE ---
Received patient this am AAOx3. Pt off unit for chest Xray. OOB to chair an ambulating in room independently with a steady gait. Pt offered no complaints. Home O2 assessment completed by respiratory. O2 sat 96% at rest on RA. 02 sat 94% on RA with
ambulation of 200 ft. Cont to assess patient status. Pt for discharge to home today.
== END 2024-01-20 14:35 | disposition home or self-care (01) | DRG 180 ==
LOC: 4 EAST ACU 15:23
PROVIDERS: Radiology Vascular & Interventional Radiology; ADMITTING PHYSICIAN Internal Medicine; ATTENDING PHYSICIAN Internal Medicine; CONSULT PHYSICIAN Internal Medicine Critical Care Medicine; EMERGENCY PHYSICIAN Emergency Medicine; FAMILY PHYSICIAN Physician Assistant Medical
PROC: 0W9B3ZX Drainage of Left Pleural Cavity, Percutaneous Approach, Diagnostic (ICD-10-PCS; 2024-01-19)
DX: C78.00 Secondary malignant neoplasm of unspecified lung (principal); J18.9 Pneumonia, unspecified organism; J90 Pleural effusion, not elsewhere classified; J98.11 Atelectasis; I10 Essential (primary) hypertension; K57.30 Diverticulosis of large intestine without perforation or abscess without bleeding; C73 Malignant neoplasm of thyroid gland; H26.9 Unspecified cataract; I89.0 Lymphedema, not elsewhere classified; I48.0 Paroxysmal atrial fibrillation; R06.89 Other abnormalities of breathing; R09.02 Hypoxemia; E03.2 Hypothyroidism due to medicaments and other exogenous substances; Z79.01 Long term (current) use of anticoagulants; Z85.850 Personal history of malignant neoplasm of thyroid
CPT/HCPCS: 88305; 32555; 71045; 71046; 71250; 80048; 80053; 82150; 82945; 83615; 83735; 83880; 83986; 84100; 84157; 84443; 84478; 84484; 85025; 85027; 87015; 87070; 87205; 88112; 88341; 88342; 89051; 93005; 99285

== ENCOUNTER 2024-02-26 11:09 | Emergency (ER) | payer OTHER, SELFPAY ==
[2024-02-26] VITALS (8 sets, daily range): BP systolic 77–122; BP diastolic 60–112; BMI 25.1
--- NOTE | 2024-02-26 11:41 | ED.GENMED ---
ED Provider Triage
<Erick Winter PA-C - Last Filed: 02/26/24 11:42>
-
Patient seen by provider in Triage?: Seen in Triage
73-year-old male with history of thyroid cancer and recurrent pleural effusions. Was sent in by the doctors at [facility] secondary to recurrent left-sided pleural effusion. He notes shortness of breath. He is on Eliquis. Last dose of Eliquis was
Saturday evening. He denies fevers.
Pulse ox initially slightly low at triage but this normalized during triage. Repeat x-ray basic labs pending.
Patient received medical screening assessment through triage by healthcare provider. He warrants further evaluation
History of Present Illness
<Erick Winter PA-C - Last Filed: 02/26/24 11:42>
General
Chief Complaint: Breathing Problem
Time Seen by Provider: 02/26/24 13:26
<Yancy Cai PA-C - Last Filed: 02/26/24 18:06>
General
Source: patient
Exam Limitations: none
Nursing documentation reviewed up to this point in time: agreed with
History of Present Illness
History of Present Illness:
73-year-old male with history of metastatic thyroid cancer and recurrent left-sided pleural effusions presenting to the emergency department due to shortness of breath. Patient states he became short of breath yesterday which has progressively
worsened. Symptoms are worse with exertion although also present at rest. He requires frequent thoracenteses due to pleural effusions of the left lung. His team at [facility] was planning to schedule him to have this done at some point this week
although given worsening in symptoms patient came to emergency department today. Patient denies any chest pain, fevers, chills.
Patient has chronic lymphedema of his bilateral lower legs.
Past History
<KAREEN López Last Filed: 02/26/24 11:42>
Past History
ED Past Medical History: Arrthythmia, HTN and Other (Thyroid cancer, diverticulosis, vomiting ulcerations, migraines)
Social History
Tobacco: Non-smoker
Alcohol: None
Drug: None
Personal:
Review of Systems
<Yancy Cai PA-C - Last Filed: 02/26/24 18:06>
Review of Systems
Allergies reviewed?: Yes
All Other Systems: ROS reviewed and negative except as documented in HPI and ROS
Phy Exam
<Yancy Cai PA-C - Last Filed: 02/26/24 18:06>
Physical Exam
Physical Exam:
Vitals: Patient's vital signs are stable. Afebrile
General: Patient is well appearing, no acute distress
Skin: Warm and dry, no rashes or lesions
Head: Normocephalic, atraumatic
Eyes: Sclera nonicteric. EOMs intact. No nystagmus.
Throat: Protecting airway. Trachea midline
Neck: Normal ROM, no cervical spine tenderness, no meningismus
Cardiac: Regular rate and rhythm, no murmurs.
Pulm: Mildly increased work of breathing. Decreased breath sounds of left lung. O2 saturation 96 on room air
Abdomen: Abdomen soft no abdominal tenderness.
Extremities: 2+ pitting edema bilateral lower extremities.
Neuro: AAOx3. Grossly intact.
Psychiatric: Normal affect.
Scores
<Yancy Cai PA-C - Last Filed: 02/26/24 18:06>
Heart Failure Risk
Heart Failure Risk Score: Not Applicable
Course
<Erick Winter PA-C - Last Filed: 02/26/24 11:42>
Orders/Labs/Results
Orders:
Orders
02/26/24 11:40
CR Chest - 2 Views Urgent
Comment:
Reason For Exam: sob, pleural effusion
02/26/24 11:51
Complete Blood Count/With Diff Urgent
Comprehensive Metabolic Panel Urgent
02/26/24 13:38
Electrocardiogram (*1) Urgent
Reason for Study: Shortness of Breath
EKG- Treatment ONCE
02/26/24 14:40
IRAD CONSULT Urgent
Consulting Provider: Fazal Babcock
Was physician already notified: Yes
Reason for Consult/Procedure: Left thoracentesis
Acknowledgement that appropriate orders are entered: Yes
02/26/24 15:13
Chest X-ray Portable [CR Chest Portable - 1 View] Urgent
Comment:
Reason For Exam: Left Thoracentesis
Reason Study Needs to be Portable: Unable to Transport
02/26/24 15:14
Body Fluid Cell Count Urgent
What is the Body Fluid: Pleural fluid
Date Specimen was Collected: 02/26/24
Time Specimen was Collected: 15:12
Comment: Left Thoracentesis
Body Fluid Glucose Urgent
Fluid Source: Pleural
Date Specimen was Collected: 02/26/24
Time Specimen was Collected: 15:12
Comment: Left Thoracentesis
Body Fluid LDH Urgent
Fluid Source: Pleural
Date Specimen was Collected: 02/26/24
Time Specimen was Collected: 15:12
Comment: Left Thoracentesis
Body Fluid pH Urgent
Fluid Source: Pleural
Date Specimen was Collected: 02/26/24
Time Specimen was Collected: 15:12
Comment: Left Thoracentesis
Fluid Culture with Gram Stain Urgent
CHEL Source: Pleural Fluid
Specimen Description:
Date Specimen was Collected: 02/26/24
Time Specimen was Collected: 15:12
Comment: Left Thoracentesis
Abnormal Lab Results
02/26/24
11:51
RBC 4.23 L 10^6/uL
(4.70-6.10)
Hgb 12.3 L g/dL
(13.0-18.0)
Hct 38.1 L %
(39.0-52.0)
MCHC 32.3 L g/dL
(33.0-37.0)
Absolute Lymphs (auto) 0.4 L 10^3/uL
(1.2-3.4)
Absolute Monos (auto) 0.7 H 10^3/uL
(0.1-0.6)
Neutrophils % 78.7 H %
(42.2-75.2)
Lymphocytes % 5.4 L %
(20.5-51.1)
Monocytes % 9.4 H %
(1.7-9.3)
BUN 25 H mg/dl
(9-20)
Glucose 117 H mg/dl
(70-99)
AST 16 L U/L
(17-59)
Total Protein 6.2 L g/dl
(6.3-8.2)
02/26/24 11:51
02/26/24 11:51
Vital Signs
Initial and Last Documented VS:
Initial Vital Signs
Temp Pulse Resp BP Pulse Ox
98.4 F 81 18 102/64 100
02/26/24 11:37 02/26/24 11:37 02/26/24 11:37 02/26/24 11:37 02/26/24 11:37
Last Documented Vital Signs
Temp Pulse Resp BP Pulse Ox
97.8 F 66 21 110/60 94
02/26/24 14:59 02/26/24 17:15 02/26/24 17:15 02/26/24 17:00 02/26/24 17:17
<Yancy Cai PA-C - Last Filed: 02/26/24 18:06>
Orders/Labs/Results
Orders:
Orders
02/26/24 11:40
CR Chest - 2 Views Urgent
Comment:
Reason For Exam: sob, pleural effusion
02/26/24 11:51
Complete Blood Count/With Diff Urgent
Comprehensive Metabolic Panel Urgent
02/26/24 13:38
Electrocardiogram (*1) Urgent
Reason for Study: Shortness of Breath
EKG- Treatment ONCE
02/26/24 14:40
IRAD CONSULT Urgent
Consulting Provider: Fazal Babcock
Was physician already notified: Yes
Reason for Consult/Procedure: Left thoracentesis
Acknowledgement that appropriate orders are entered: Yes
02/26/24 15:13
Chest X-ray Portable [CR Chest Portable - 1 View] Urgent
Comment:
Reason For Exam: Left Thoracentesis
Reason Study Needs to be Portable: Unable to Transport
02/26/24 15:14
Body Fluid Cell Count Urgent
What is the Body Fluid: Pleural fluid
Date Specimen was Collected: 02/26/24
Time Specimen was Collected: 15:12
Comment: Left Thoracentesis
Body Fluid Glucose Urgent
Fluid Source: Pleural
Date Specimen was Collected: 02/26/24
Time Specimen was Collected: 15:12
Comment: Left Thoracentesis
Body Fluid LDH Urgent
Fluid Source: Pleural
Date Specimen was Collected: 02/26/24
Time Specimen was Collected: 15:12
Comment: Left Thoracentesis
Body Fluid pH Urgent
Fluid Source: Pleural
Date Specimen was Collected: 02/26/24
Time Specimen was Collected: 15:12
Comment: Left Thoracentesis
Fluid Culture with Gram Stain Urgent
CHEL Source: Pleural Fluid
Specimen Description:
Date Specimen was Collected: 02/26/24
Time Specimen was Collected: 15:12
Comment: Left Thoracentesis
Abnormal Lab Results
12/04/24
11:51
RBC 4.23 L 10^6/uL
(4.70-6.10)
Hgb 12.3 L g/dL
(13.0-18.0)
Hct 38.1 L %
(39.0-52.0)
MCHC 32.3 L g/dL
(33.0-37.0)
Absolute Lymphs (auto) 0.4 L 10^3/uL
(1.2-3.4)
Absolute Monos (auto) 0.7 H 10^3/uL
(0.1-0.6)
Neutrophils % 78.7 H %
(42.2-75.2)
Lymphocytes % 5.4 L %
(20.5-51.1)
Monocytes % 9.4 H %
(1.7-9.3)
BUN 25 H mg/dl
(9-20)
Glucose 117 H mg/dl
(70-99)
AST 16 L U/L
(17-59)
Total Protein 6.2 L g/dl
(6.3-8.2)
02/26/24 11:51
02/26/24 11:51
Vital Signs
Initial and Last Documented VS:
Initial Vital Signs
Temp Pulse Resp BP Pulse Ox
98.4 F 81 18 102/64 100
02/26/24 11:37 02/26/24 11:37 02/26/24 11:37 02/26/24 11:37 02/26/24 11:37
Last Documented Vital Signs
Temp Pulse Resp BP Pulse Ox
97.8 F 66 21 110/60 94
02/26/24 14:59 02/26/24 17:15 02/26/24 17:15 02/26/24 17:00 02/26/24 17:17
edmund;DO Yahaira Gray Last Filed: 02/26/24 17:14>
Orders/Labs/Results
Orders:
Orders
02/26/24 11:40
CR Chest - 2 Views Urgent
Comment:
Reason For Exam: sob, pleural effusion
02/26/24 11:51
Complete Blood Count/With Diff Urgent
Comprehensive Metabolic Panel Urgent
02/26/24 13:38
Electrocardiogram (*1) Urgent
Reason for Study: Shortness of Breath
EKG- Treatment ONCE
02/26/24 14:40
IRAD CONSULT Urgent
Consulting Provider: Fazal Babcock
Was physician already notified: Yes
Reason for Consult/Procedure: Left thoracentesis
Acknowledgement that appropriate orders are entered: Yes
02/26/24 15:13
Chest X-ray Portable [CR Chest Portable - 1 View] Urgent
Comment:
Reason For Exam: Left Thoracentesis
Reason Study Needs to be Portable: Unable to Transport
02/26/24 15:14
Body Fluid Cell Count Urgent
What is the Body Fluid: Pleural fluid
Date Specimen was Collected: 02/26/24
Time Specimen was Collected: 15:12
Comment: Left Thoracentesis
Body Fluid Glucose Urgent
Fluid Source: Pleural
Date Specimen was Collected: 02/26/24
Time Specimen was Collected: 15:12
Comment: Left Thoracentesis
Body Fluid LDH Urgent
Fluid Source: Pleural
Date Specimen was Collected: 02/26/24
Time Specimen was Collected: 15:12
Comment: Left Thoracentesis
Body Fluid pH Urgent
Fluid Source: Pleural
Date Specimen was Collected: 02/26/24
Time Specimen was Collected: 15:12
Comment: Left Thoracentesis
Fluid Culture with Gram Stain Urgent
CHEL Source: Pleural Fluid
Specimen Description:
Date Specimen was Collected: 02/26/24
Time Specimen was Collected: 15:12
Comment: Left Thoracentesis
Abnormal Lab Results
02/26/24
11:51
RBC 4.23 L 10^6/uL
(4.70-6.10)
Hgb 12.3 L g/dL
(13.0-18.0)
Hct 38.1 L %
(39.0-52.0)
MCHC 32.3 L g/dL
(33.0-37.0)
Absolute Lymphs (auto) 0.4 L 10^3/uL
(1.2-3.4)
Absolute Monos (auto) 0.7 H 10^3/uL
(0.1-0.6)
Neutrophils % 78.7 H %
(42.2-75.2)
Lymphocytes % 5.4 L %
(20.5-51.1)
Monocytes % 9.4 H %
(1.7-9.3)
BUN 25 H mg/dl
(9-20)
Glucose 117 H mg/dl
(70-99)
AST 16 L U/L
(17-59)
Total Protein 6.2 L g/dl
(6.3-8.2)
02/26/24 11:51
02/26/24 11:51
Vital Signs
Initial and Last Documented VS:
Initial Vital Signs
Temp Pulse Resp BP Pulse Ox
98.4 F 81 18 102/64 100
02/26/24 11:37 02/26/24 11:37 02/26/24 11:37 02/26/24 11:37 02/26/24 11:37
Last Documented Vital Signs
Temp Pulse Resp BP Pulse Ox
97.8 F 66 21 110/60 94
02/26/24 14:59 02/26/24 17:15 02/26/24 17:15 02/26/24 17:00 02/26/24 17:17
<Yancy Cai PA-C - Last Filed: 02/26/24 18:06>
MDM/Problems Addressed
Differential Diagnosis Includes:
Not limited to: Pleural effusion, pneumonia, pneumothorax, CHF, ACS, etc.
MDM/Problems Addressed:
73-year-old male with history metastatic thyroid cancer and recurrent left-sided pleural effusions presenting with worsening shortness of breath. No chest pain, fevers. Patient's vital signs are stable. On physical exam�appears in no apparent
distress. his oxygen saturation is 96 on room air. He has markedly decreased breath sounds in the left side. Chronic lymphedema bilateral lower extremities noted. Basic labs were initiated in triage without any clinically significant
abnormalities. Suspect likely recurrent left-sided pleural effusion. Do not suspect ACS. Chest x-ray pending. EKG. Will closely monitor and reassess.
EKG shows normal sinus rhythm without any acute ischemic changes. Chest x-ray does show large left-sided pleural effusion. Did discuss with interventional radiology who is able to perform thoracentesis today. Consult to IR placed.
Chronic conditions affecting care:
Metastatic thyroid cancer, recurrent pleural effusions
Acute Exacerbation and/or Progression of Chronic Illness:
Pleural effusion of left lung
<Yancy Cai PA-C - Last Filed: 02/26/24 18:06>
*Radiology
Radiology exam reviewed: preliminary read by ED provider (Large left-sided pleural effusion) and radiology read reviewed
*Pulse Oximetry
Patient hypoxic: no
*EKG
Interpreted by ED Provider?: Yes
EKG Intrepretation Date: 02/26/24
Interpretation: normal
Heart Rate: 75
Rate: normal
Rhythm: sinus
[place]: normal axis
Interval: normal QT interval
QRS Pattern: normal QRS
Ischemia: no ischemia
*Reprint Sorter Interpretation
Rate: normal
Interpretation: normal
Heart Rate: 68
Rhythm: sinus
*Critical Care Note
Total Time (30-74mins, 75-104mins- exclusive of procedures): Not Applicable
<Yancy Cai PA-C - Last Filed: 02/26/24 18:06>
Patient Management
Discussion with other providers: [facility] (Interventional radiology-Dr. Babcock)
<Yancy Cai PA-C - Last Filed: 02/26/24 18:06>
Update Note
Update Note:
Update: Patient returned from thoracentesis with significant improvement in symptoms. Over 2 L were drained. Fluid analysis shows no obvious signs of infection. Patient remains well-appearing, in no apparent distress and O2 of 95 on room air. He
is stable for discharge home with primary care/oncology follow-up. Return precautions discussed. Patient seen with attending physician.
ED Attending Note
<Erick Winter PA-C - Last Filed: 02/26/24 11:42>
-
Portions of this chart may have been created with voice recognition software.� Occasional wrong word or��sound alike� substitutions may have occurred due to the inherent limitations of voice recognition software.
<Delroy Elizondo, - Last Filed: 02/26/24 17:14>
ED Attending Note
Patient seen and examined by attending physician: Yes
I performed the substantive portion of visit, reviewed & personally made and approve the management plan that is documented in note by myself or ROSELYN.: Yes
ED Attending Note:
I agree with Sepideh's note.
Pt with increasing shortness of breath. Known left pleural effusion.
General: Awake, Alert, Oriented X3. No acute distress.
Vitals: unremarkable
Head: Atraumatic
Eyes: Pupils equal, EOMI
Throat: Airway intact, no exudates
Neck: Trachea midline
Lungs: Decreased breath sounds left lower lung
Heart: Regular rate, no murmurs
Extremities: pulses equal b/l, 2+ edema
IR consult obtained. Patient will go over to IR for thoracentesis.
Patient feels much better after thoracentesis. Stable for discharge home.
Discharge Plan
Departure
Patient Disposition: Home (Routine Discharge)
Date of Disposition: 02/26/24
Time of Disposition: 17:12
Patient with high blood pressure during this ER visit?: No
Condition: Good
Covid-19: Not Applicable
Discharge Problem:
Recurrent pleural effusion on left
Instructions: Pleural effusion, Thoracentesis (DC)
Prescriptions:
No Action
levothyroxine 150 MCG tablet
150 mcg PO DAILY
Eliquis 5 MG tablet
5 mg PO BID
spironolactone 50 MG tablet
50 mg PO DAILY Qty: 60 2RF
metoprolol succinate 25 MG tablet extended release 24 hr
25 mg PO BID Qty: 60 2RF
cyanocobalamin (vitamin B-12) 1,000 mcg Tablet
1,000 mcg PO DAILY
acetaminophen [Tylenol Extra Strength] 500 mg Tablet
500 mg PO Q6HPRN PRN (Reason: mild pain)
Auacbsfjlio-Wjojo-UJH Complex 178-314-56-0.5 mg Tablet
1 tab PO HS
cod liver oil 240-1,000 mg Capsule
1 cap PO BID
dofetilide 250 MCG capsule
250 mcg PO Q12H
Referrals:
Fransisca Richards PA-C [Family Provider] -
Activity Restrictions/Additional Instructions:
RETURN TO THE EMERGENCY DEPARTMENT WITH ANY FEVERS, SHORTNESS OF BREATH, CHEST PAIN, COUGHING UP BLOOD, WORSENING IN CURRENT SYMPTOMS, OR ANY OTHER CONCERNS
-As discussed�your chest x-ray did show a recurrent left-sided pleural effusion today which was drained while you are in the hospital today.
-As discussed that you can restart your Eliquis tomorrow.
-Follow-up with your oncologist at [place] and primary care as needed.
Monitor your symptoms closely return to the emergency department with any acute worsening/new symptoms or any other concerns
Interventions
Interventions:
*Risk Screen - Suicide Last Done: 02/26/24 11:37
*General Assessment Last Done: 02/26/24 11:37
*Neglect/Abuse Screening Last Done: 02/26/24 11:37
ED- Fall Risk Assessment Last Done: 02/26/24 14:25
*ED COVID-19 Vaccine History Last Done: 02/26/24 14:25
*Nursing Disposition Last Done: 02/26/24 17:17
ED- Cardiac Assessment Last Done: 02/26/24 14:25
ED- Pulmonary Assessment Last Done: 02/26/24 14:25
Discharge Date and Time
Discharge Date/Time: 02/26/24 17:33
Print Language: LIBYAN
[2024-02-26 12:17] LABS: % Basophils 0.8 % (0-2); % Eosinophils 5.3 % (0-6); % Immature Granulocytes 0.4 % (0-0.5); % Lymphocytes 5.4 % (20.5-51.1); % Monocytes 9.4 % (1.7-9.3); % Neutrophils 78.7 % (42.2-75.2); Absolute Basophils 0.1 10^3/uL (0-0.2); Absolute Eosinophils 0.4 10^3/uL (0-0.7); Absolute Lymphocytes 0.4 10^3/uL (1.2-3.4); Absolute Monocytes 0.7 10^3/uL (0.1-0.6); Absolute Neutrophils 6.1 10^3/uL (1.4-6.5); Hematocrit 38.1 % (39.0-52.0); Hemoglobin 12.3 g/dL (13.0-18.0); Mean Corp Hgb Conc. 32.3 g/dL (33.0-37.0); Mean Corpuscular Hgb 29.1 pg (27.0-31.0); Mean Corpuscular Volume 90.1 fL (80.0-94.0); Mean Platelet Volume 9.8 fL (7.4-10.4); Nucleated Red Blood Cells % 0 % (-); Platelet Count 277 10^3/uL (130-400); Red Blood Cell Count 4.23 10^6/uL (4.70-6.10); Red Cell Dist. Width 14.5 % (11.5-14.5); White Blood Cell Count 7.7 10^3/uL (4.8-10.8)
[2024-02-26 12:32] LABS: ALT (SGPT) 10 U/L (0-50); AST (SGOT) 16 U/L (17-59); Albumin 3.7 g/dl (3.5-5.0); Alkaline Phosphatase 78 U/L (38-126); Blood Urea Nitrogen 25 mg/dl (9-20); Calcium 9.2 mg/dl (8.4-10.2); Carbon Dioxide 29 mmol/L (22-30); Chloride 102 mmol/L (98-107); Glucose 117 mg/dl (70-99); Potassium 4.9 mmol/L (3.5-5.1); Sodium 141 mmol/L (135-145); Total Protein 6.2 g/dl (6.3-8.2); eGFR > 60.00
[2024-02-26 15:30] LABS: Body Fluid pH 7.59
[2024-02-26 15:43] LABS: Body Fluid Mononuclear 46.9 %; Body Fluid Polymorphonuclear 53.1 %; Body Fluid WBC 2180 /CUMM
[2024-02-26 15:45] LABS: Body Fluid Glucose 57 mg/dl; Body Fluid LDH 199 U/L
[2024-02-26 15:52] LABS: Body Fluid Second Tech RP
== END 2024-02-26 17:33 | disposition home or self-care (01) ==
LOC: EMR 11:09
PROVIDERS: Physician Assistant; CONSULT PHYSICIAN Radiology Diagnostic Radiology; EMERGENCY PHYSICIAN Emergency Medicine; FAMILY PHYSICIAN Physician Assistant Medical
DX: J90 Pleural effusion, not elsewhere classified (principal); C73 Malignant neoplasm of thyroid gland; C78.00 Secondary malignant neoplasm of unspecified lung
CPT/HCPCS: 99284; 32555; 71045; 71046; 80053; 82945; 83615; 83986; 85025; 87015; 87070; 87205; 89051; 93005

== ENCOUNTER → 2024-03-11 09:50 | Outpatient (REF) | payer OTHER, SELFPAY | LOC: RAD 09:50 | PROVIDERS: ATTENDING PHYSICIAN Physician Assistant Medical | DX: R06.02 Shortness of breath (principal) | CPT/HCPCS: 71046 ==

== ENCOUNTER → 2024-03-13 10:24 | Outpatient (REF) | payer OTHER, SELFPAY ==
[2024-03-13 10:40] VITALS: BP 124/78; BP_SYST 71
[2024-03-13 11:10] VITALS: BP 111/79; BP_SYST 60
== END ==
LOC: RADI 10:24
PROVIDERS: ATTENDING PHYSICIAN Physician Assistant
DX: D49.9 Neoplasm of unspecified behavior of unspecified site (principal); J91.0 Malignant pleural effusion
CPT/HCPCS: 32555; 71045

== ENCOUNTER → 2024-04-02 12:41 | Outpatient (REF) | payer OTHER, SELFPAY | LOC: WOUND 12:41 | PROVIDERS: ATTENDING PHYSICIAN Surgery; FAMILY PHYSICIAN Physician Assistant Medical | DX: I87.312 Chronic venous hypertension (idiopathic) with ulcer of left lower extremity (principal); L97.222 Non-pressure chronic ulcer of left calf with fat layer exposed; C73 Malignant neoplasm of thyroid gland; I89.0 Lymphedema, not elsewhere classified; I48.19 Other persistent atrial fibrillation; Z79.01 Long term (current) use of anticoagulants | CPT/HCPCS: 29581; 99214 ==

== ENCOUNTER → 2024-04-10 09:34 | Outpatient (REF) | payer OTHER, SELFPAY | LOC: WOUND 09:34 | PROVIDERS: ATTENDING PHYSICIAN Surgery; FAMILY PHYSICIAN Physician Assistant Medical | DX: I87.312 Chronic venous hypertension (idiopathic) with ulcer of left lower extremity (principal); L97.222 Non-pressure chronic ulcer of left calf with fat layer exposed; C73 Malignant neoplasm of thyroid gland; I89.0 Lymphedema, not elsewhere classified; Z79.01 Long term (current) use of anticoagulants; I48.19 Other persistent atrial fibrillation | CPT/HCPCS: 29581; 99213 ==

== ENCOUNTER 2024-04-10 20:02 | Inpatient (IN) | payer OTHER, SELFPAY ==
[2024-04-10] VITALS (11 sets, daily range): BP systolic 69–124; BP diastolic 54–78
[2024-04-10 11:25] LABS: % Basophils 0.4 % (0-2); % Eosinophils 1.5 % (0-6); % Immature Granulocytes 0.4 % (0-0.5); % Lymphocytes 2.7 % (20.5-51.1); % Monocytes 9.7 % (1.7-9.3); % Neutrophils 85.3 % (42.2-75.2); Absolute Eosinophils 0.2 10^3/uL (0-0.7); Absolute Lymphocytes 0.3 10^3/uL (1.2-3.4); Absolute Monocytes 1.1 10^3/uL (0.1-0.6); Absolute Neutrophils 9.4 10^3/uL (1.4-6.5); Hematocrit 38.2 % (39.0-52.0); Hemoglobin 12.5 g/dL (13.0-18.0); Mean Corp Hgb Conc. 32.7 g/dL (33.0-37.0); Mean Corpuscular Hgb 29.4 pg (27.0-31.0); Mean Corpuscular Volume 89.9 fL (80.0-94.0); Mean Platelet Volume 9.2 fL (7.4-10.4); Nucleated Red Blood Cells % 0 % (-); Platelet Count 334 10^3/uL (130-400); Red Blood Cell Count 4.25 10^6/uL (4.70-6.10); Red Cell Dist. Width 15.7 % (11.5-14.5)
[2024-04-10 11:57] LABS: ALT (SGPT) < 10 U/L (0-50); AST (SGOT) 14 U/L (17-59); Albumin 3.6 g/dl (3.5-5.0); Alkaline Phosphatase 93 U/L (38-126); Blood Urea Nitrogen 21 mg/dl (9-20); Carbon Dioxide 27 mmol/L (22-30); Chloride 103 mmol/L (98-107); Glucose 118 mg/dl (70-99); Potassium 4.1 mmol/L (3.5-5.1); Sodium 137 mmol/L (135-145); Total Bilirubin 1.1 mg/dl (0.2-1.3); Total Protein 6.2 g/dl (6.3-8.2); eGFR > 60.00
--- NOTE | 2024-04-10 12:20 | ED.GENMED ---
History of Present Illness
General
Chief Complaint: Breathing Problem
Source: patient
Exam Limitations: none
Time Seen by Provider: 04/10/24 11:53
Nursing documentation reviewed up to this point in time: agreed with
History of Present Illness
History of Present Illness:
73-year-old male with past medical history of metastatic thyroid cancer, A-fib on Eliquis, CAD, hyperlipidemia presents emergency department today with concerns of shortness of breath this started over the past 2 days. Patient states that when he
feels this way, usually has to get fluid drained lungs. Patient reports that he has been getting an increasing amount of thoracentesis procedures recently as patient has been on a break from chemotherapy as he is getting a wound treated on his
lower extremity. Patient also states that he started pressure in the top of his chest which is unusual for him. That he woke up the pain does not radiate anywhere. Patient denies any palpitations. Patient reports his last dose of was last night.
He does take it twice a day but skip this morning dose in case he had to get the thoracentesis.
Past History
Past History
ED Past Medical History: Arrthythmia, HTN and Other (Thyroid cancer, diverticulosis, vomiting ulcerations, migraines)
Social History
Tobacco: Non-smoker
Alcohol: None
Drug: None
Personal:
Review of Systems
Review of Systems
All Other Systems: ROS reviewed and negative except as documented in HPI and ROS
Phy Exam
Physical Exam
Physical Exam:
General: Patient is well appearing and in no acute distress; non-toxic
Skin: Warm and dry, no rashes or lesions
Head: Normocephalic, atraumatic
Eyes: Sclera non-icteric. EOMs intact.
Cardiac: Regular rate and rhythm, no murmurs
Peripheral Vascular: No lower extremity swelling or edema
Pulm: Normal respiratory effort, decreased breath sounds on the left, no wheezing, rales, or rhonchi
Abdomen: No abdominal tenderness
Musculoskeletal:
Neuro: CN II-XII intact, no focal neurologic deficits.
Psychiatric: Appropriate mood and affect.
Scores
Heart Failure Risk
Heart Failure Risk Score: Not Applicable
Course
Orders/Labs/Results
Orders:
Orders
04/10/24
DH LUMASON 5mL Routine
Electrocardiogram (*1) Stat
Comment: DONE EMR
04/10/24 11:04
CXR2 [CR Chest - 2 Views ] Urgent
Comment:
Reason For Exam: SOB
04/10/24 11:06
CBC/With Diff [Complete Blood Count/With Diff] Urgent
Comprehensive Metabolic Panel Urgent
Free T4 Urgent
TSH Reflex To Free T4 Urgent
Comment: ADDON
04/10/24 12:43
Electrocardiogram (*1) Urgent
Reason for Study: Shortness of Breath
EKG- Treatment ONCE
04/10/24 12:44
Consult Interventional Radiology [IRAD CONSULT] Urgent
Consulting Provider: Fazal Babcock
Was physician already notified: Yes
Reason for Consult/Procedure: thoracentesis
Acknowledgement that appropriate orders are entered: Yes
04/10/24 13:36
Chest Single View Frontal CR [CR Chest Single View] Urgent
Comment:
Reason For Exam: Left Thoracentesis
04/10/24 13:37
Body Fluid Cell Count Routine
What is the Body Fluid: pleural fluid
Date Specimen was Collected: 04/10/24
Time Specimen was Collected: 13:20
Comment: Left Thoracentesis
Body Fluid Glucose Routine
Fluid Source: Pleural
Date Specimen was Collected: 04/10/24
Time Specimen was Collected: 13:20
Comment: Left Thoracentesis
Body Fluid LDH Routine
Fluid Source: Pleural
Date Specimen was Collected: 04/10/24
Time Specimen was Collected: 13:20
Comment: Left Thoracentesis
Body Fluid pH Routine
Fluid Source: Pleural
Date Specimen was Collected: 04/10/24
Time Specimen was Collected: 13:20
Comment: Left Thoracentesis
Fluid Culture with Gram Stain Routine
CHEL Source: Pleural Fluid
Specimen Description:
Date Specimen was Collected: 04/10/24
Time Specimen was Collected: 13:20
Comment: Left Thoracentesis
04/10/24 15:03
Troponin I Urgent
04/10/24 16:14
Electrocardiogram (*1) Urgent
Reason for Study: Chest Pain
EKG- Treatment ONCE
04/10/24 16:24
Echo 2D MMode Color/Doppler Urgent
Reason for Study: Chest pain, shortness of breath
Comment: Metastatic cancer, R/O effusion
04/10/24 17:16
Add On- LAB Urgent
Tests Added?: TSH reflex to T4
04/10/24 17:56
Troponin I Urgent
04/10/24 18:55
CARDIOLOGY CONSULT Urgent
Consulting Provider: Sander Thompson
Was physician already notified: Yes
04/10/24 20:07
DDimer [D-Dimer] Routine
04/10/24 20:33
Admit/Transfer Patient As Directed
Co-Sign Provider:
Level of Care: Observation services
Assign to:: Telemetry
Physician / Group: Sharon Ott
Diagnosis: chest pain
Reason for Telemetry: Chest Pain syndromes
Date to Stop Telemetry: 04/12/24
Time to Stop Telemetry: 11:00
PRN Pain Medication Management As Directed
May give lesser potent ordered pain med per pt: Yes
preference::
Protocol:: Medication orders for pain may be administered in a
manner that supports deferring to patient preference
when the pt is:
- Requesting an ordered lesser potent pain medication.
Least to most potent pain medications are defined
as: acetaminophen < NSAID < tramadol < opioids
(morphine, oxycodone, hydromorphone).
- Requesting a lesser dose of the same medication IF
ORDERED.
- Requesting a less intrusive route of administration
if both routes are prescribed by the provider (PO <
IV).
04/10/24 20:35
Code Status As Directed
Resuscitation Status: Full Code
04/10/24 22:07
Troponin I Routine
04/11/24 06:00
Troponin I IN AM
04/12/24 11:00
DC Protocol for Telemetry ONCE
Abnormal Lab Results
04/10/24
11:06
WBC 11.0 H 10^3/uL
(4.8-10.8)
RBC 4.25 L 10^6/uL
(4.70-6.10)
Hgb 12.5 L g/dL
(13.0-18.0)
Hct 38.2 L %
(39.0-52.0)
MCHC 32.7 L g/dL
(33.0-37.0)
RDW 15.7 H %
(11.5-14.5)
Absolute Neuts (auto) 9.4 H 10^3/uL
(1.4-6.5)
Absolute Lymphs (auto) 0.3 L 10^3/uL
(1.2-3.4)
Absolute Monos (auto) 1.1 H 10^3/uL
(0.1-0.6)
Neutrophils % 85.3 H %
(42.2-75.2)
Lymphocytes % 2.7 L %
(20.5-51.1)
Monocytes % 9.7 H %
(1.7-9.3)
BUN 21 H mg/dl
(9-20)
Glucose 118 H mg/dl
(70-99)
AST 14 L U/L
(17-59)
Total Protein 6.2 L g/dl
(6.3-8.2)
TSH (Reflex) 0.25 L uIU/ml
(0.47-4.68)
04/10/24 11:06
04/10/24 11:06
Vital Signs
Initial and Last Documented VS:
Initial Vital Signs
Temp Pulse Resp BP Pulse Ox
98.3 F 94 16 103/67 95
04/10/24 11:00 04/10/24 11:00 04/10/24 11:00 04/10/24 11:00 04/10/24 11:00
Last Documented Vital Signs
Temp Pulse Resp BP Pulse Ox
98.6 F 72 32 103/58 93
04/10/24 13:10 04/10/24 19:30 04/10/24 19:30 04/10/24 16:00 04/10/24 16:45
MDM/Problems Addressed
Differential Diagnosis Includes:
See below
MDM/Problems Addressed:
NUMBER AND COMPLEXITY OF PROBLEMS ADDRESSED AT THE ENCOUNTER
� Chronic conditions affecting care: Thyroid cancer, recurrent pleural effusion, A-fib
� Acute Exacerbation and/or Progression of Chronic Illness: Cancer, A-fib
� Differential Diagnosis includes: Pleural effusion, ACS, symptomatic anemia, PE
AMOUNT AND/OR COMPLEXITY OF DATA TO BE REVIEWED AND ANALYZED
� I performed an independent evaluation of and my interpretation is:
EKG: Mild ST elevation noted in leads I and II
Laboratory Studies: Troponin did elevate from 0.014-0.034
Other:
� Review of other/old records: Reviewed previous ER physician documentation from 02/26/2024, patient seen for recurrent pleural effusion
� Clinical information was obtained by an independent historian: present with patient who also provided HPI
� Prescriptions/Medications Considered but not given: None
� Further testing considered but not performed: N/A
RISK OF COMPLICATIONS AND/OR MORBIDITY OR MORTALITY OF PATIENT MANAGEMENT
� Social determinants of health affecting care: None
� Discussion with other providers: ER attending
� Escalation of care including admission/observation vs risk of discharge considered:
This is a 73-year-old male with past medical history of thyroid cancer mets to the lung with malignant pleural effusion presents emergency department today with multiple days of shortness of breath with exertion. He is found to have a large pleural
effusion on the left. Patient was sent for thoracentesis. Patient did note he started out chest pain last night that progressed into today, he did have a troponin which was nonelevated however his EKG showed mild ST elevation in leads I and II.
Patient had his troponin trended out repeat EKG which the troponin did elevate. Patient did have echo in emergency department which showed no evidence for pleural effusion doubt pericarditis. Had discussion with Dr. Thompson, low suspicion for
NSTEMI at this time, patient will not require Visually Impaired Teacher. Patient will be mated for observation and to continue trending troponins. Case discussed with hospitalist.
*Pulse Oximetry
Patient hypoxic: no
*Critical Care Note
Total Time (30-74mins, 75-104mins- exclusive of procedures): Not Applicable
Update Note
Update Note:
4:15 pm--Case discussed with Dr. 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
4:30 pm--on reassessment, patient is pain-free. Repeat EKG at this time does show possible ST segment elevations in leads I and II.
ED Attending Note
-
Portions of this chart may have been created with voice recognition software.� Occasional wrong word or��sound alike� substitutions may have occurred due to the inherent limitations of voice recognition software.
Discharge Plan
Departure
Patient Disposition: Admit
Date of Disposition: 04/10/24
Time of Disposition: 19:45
Admit to: Telemetry
Presentation/result/management discussed w/ accepting MD/DO: Hospitalist
Patient with high blood pressure during this ER visit?: No
Condition: Good
Discharge Problem:
Chest pain
Prescriptions:
No Action
levothyroxine 150 MCG tablet
150 mcg PO MOTUTHFRSA
Eliquis 5 MG tablet
5 mg PO BID
metoprolol succinate 25 MG tablet extended release 24 hr
25 mg PO BID Qty: 60 2RF
cyanocobalamin (vitamin B-12) 1,000 mcg Tablet
1,000 mcg PO DAILY
acetaminophen [Tylenol Extra Strength] 500 mg Tablet
500 mg PO Q6HPRN PRN (Reason: mild pain)
cod liver oil 240-1,000 mg Capsule
1 cap PO BID
levothyroxine 150 mcg Tablet
225 mcg PO SUWE
magnesium oxide 400 mg magnesium Tablet
400 mg PO DAILY
Referrals:
Fransisca Richards PA-C [Family Provider] -
Interventions
Interventions:
*Risk Screen - Suicide Last Done: 04/10/24 11:00
*General Assessment Last Done: 04/10/24 12:15
*Neglect/Abuse Screening Last Done: 04/10/24 11:00
ED- Fall Risk Assessment Last Done: 04/10/24 12:15
*ED COVID-19 Vaccine History Last Done: 04/10/24 12:15
ED- Cardiac Assessment Last Done: 04/10/24 12:15
ED- Pulmonary Assessment Last Done: 04/10/24 12:15
Discharge Date and Time
Print Language: FRENCH
[2024-04-10 14:08] LABS: Body Fluid Mononuclear 35.2 %; Body Fluid Polymorphonuclear 64.8 %; Body Fluid WBC 521 /CUMM
[2024-04-10 14:14] LABS: Body Fluid pH 7.38
[2024-04-10 14:15] LABS: Body Fluid Second Tech EF
[2024-04-10 14:18] LABS: Body Fluid Glucose 39 mg/dl; Body Fluid LDH 759 U/L
[2024-04-10 15:34] LABS: Troponin I 0.014 ng/ml
--- NOTE | 2024-04-10 17:47 | CARDSERVLU ---
Echocardiogram with Lumason completed after protocol screening completed. Allergies verified.
Patent IV site: RAC
IV site flushed with 0.9% NaCl pre and post administration.
Diluted bolus method utilized to enhance visualization of ventricular verdugo.
Total volume given: __5__ mL
Patient tolerated all procedures well without complications.
[2024-04-10 18:34] LABS: Troponin I 0.034 ng/ml
[2024-04-10 18:49] LABS: TSH Reflex To Free T4 0.25 uIU/ml (0.47-4.68)
--- NOTE | 2024-04-10 19:01 | CON.CAR ---
Consultation
Consultation Request
Date/Time Consultation Requested: 04/10/2023
Date/Time Consultation Performed: 04/10/2023
Requesting Provider: ER
Performing Provider: Dr. Thompson
Reason for Consultation: Abnormal troponin
Medical History
-
History of Present Illness:
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
73-year-old male with metastatic thyroid cancer, atrial fibrillation(maintained on Tikosyn and Eliquis) and hypertension who presented with shortness of breath. Patient's had a prior history of pleural effusions and has had 6 tabs since December.
Over the last couple days she has had increased shortness of breath so he felt he had an recurrent pleural effusion. Last night at about 3:45 AM he had some discomfort across his upper chest and shoulders and his upper back moderate intensity
symptoms for about an hour and then he was able to get back to sleep. In the morning the discomfort had improved at times he felt some faint discomfort in the front of the chest. He went for his wound care appointment but then ended up going to
the ER for further assessment because he knew he was going to need a thoracentesis. Patient was noted to have a large left-sided effusion with associated consolidation and innumerable bilateral pulmonary metastases.Patient underwent
thoracentesis. Follow-up chest x-ray with residual moderate partially loculated left pleural effusion with associated atelectasis. Patient states that lately he tends to have some discomfort after he gets a thoracentesis. He is unable to tell if
any of the faint residual discomfort he had after the thoracentesis was related to the thoracentesis or was related to what he was having prior to coming in the hospital. Overall symptoms improved he is currently comfortable with no shortness of
breath when I asked him if he could feel any sensation at times he thought he might be able to feel 1 focal spot on his chest that had some discomfort this also may have gotten worse with deep inspiration. No clear positional change at home he
thought it might have been better laying flat then sitting up. No GI symptoms.
No palpitations or evidence of recurrent A-fib.. First troponin 0.014-second troponin 0.034.
In the ER he had an echocardiogram with normal left ventricular function no focal wall motion abnormalities and no significant pericardial effusion.
He has metastatic thyroid cancer initial diagnosis 2019 he had surgery and radiation therapy at that time he has since had recurrence and has metastatic disease he is followed at [facility] he has had recurrent pleural effusions with 6 taps since
December. He started a new chemotherapeutic agent in February there was some medication interaction with Tikosyn so Tikosyn was discontinued. He has had no recurrent A-fib despite discontinuation of this medication he is remained on Eliquis. He
has chronic lymphedema and periodically gets sores on his legs he now has some sores on his legs so his chemotherapy has been on hold because it impacts wound healing.
Past medical history
Pleural effusions
Atrial fibrillation
Transient cardiomyopathy. Patient had a previous ejection fraction of 40% suspected to be related to A-fib which since normalized with an ejection fraction of 60%
Hypertension
Acquired hypothyroidism
Metastatic thyroid cancer
Lymphedema left leg
Bilateral cataracts
Past Medical History
Past Medical History: Other (As noted above)
Social History
Tobacco: Non-Smoker
Family History
Family History: Other (Father had prostate cancer mother hypertension and heart disease)
Allergies / Home Medications
Allergy/AdvReac Type Severity Reaction Status Date / Time
banana Allergy trouble Verified 04/10/24 11:00
breathing
cantaloupe Allergy Hives Uncoded 04/10/24 11:00
�Medication �Instructions �Recorded �Confirmed �Type
apixaban 5 mg tablet (Eliquis) 5 mg PO BID Blood clot 12/08/19 01/18/24 History
prevention/tx
levothyroxine 150 mcg tablet 150 mcg PO DAILY Thyroid 12/08/19 01/18/24 History
metoprolol succinate 25 mg 25 mg PO BID #60 tabs 12/10/19 01/18/24 Rx
tablet,extended release 24 hr
spironolactone 50 mg tablet 50 mg PO DAILY #60 tabs 12/10/19 01/18/24 Rx
acetaminophen 500 mg tablet 500 mg PO Q6HPRN PRN mild pain 01/18/24 01/18/24 History
(Tylenol Extra Strength)
cyanocobalamin (vitamin B-12) 1,000 mcg PO DAILY Supplement 01/18/24 01/18/24 History
1,000 mcg tablet
dofetilide 250 mcg capsule 250 mcg PO Q12H Arrhythmia 01/18/24 01/18/24 History
glucosamine 375 ez-pwdqkyapr-zmw 1 tab PO HS Supplement 01/18/24 01/18/24 History
no1 500 mg-C 15 mg-yvonne 0.5 mg
tablet
(Wokijcbhzce-Wfpahdzfpds-YHE
Complex)
omega-3 240 pc-wxd-xvq-cod liver 1 cap PO BID Supplement 01/18/24 01/18/24 History
oil 1,000 mg-vit A-vit D3 capsule
(cod liver oil)
Review of Systems
-
All other systems: Negative unless noted
Physical Exam
Vital Signs
Temp Pulse Resp BP Pulse Ox
98.6 F 68 24 103/58 93
04/10/24 13:10 04/10/24 18:15 04/10/24 18:15 04/10/24 16:00 04/10/24 16:45
Lab Results
04/10/24 11:06
04/10/24 11:06
Troponin I 0.034 ng/ml D 04/10/24 17:56
Physical Exam
General: Other (Awake alert cooperative in no distress eyes extraocular was intact)
HEENT: Normocephalic, Anicteric and Moist Mucous Membranes
Respiratory: Other (Decreased breath sounds left lung field no wheezes or rhonchi)
Cardiac: Regular Rhythm and Other (No murmur rub or gallop)
Musculoskeletal: No Cyanosis and No Edema
Skin: Warm, Dry and Rash
Neuro: Awake
Hematologic/Lymphatic: No Lymphadenopathy
Impression / Plan
-
Shortness of breath. Multiple factors may contribute. Patient's had issues with recurrent pleural effusion currently breathing is comfortable while at rest postthoracentesis. He still has residual moderate loculated pleural effusion. Patient
also has metastatic disease in the lungs which may also contribute to shortness of breath.
Chest discomfort-exact etiology unclear. Patient may have some residual pleural discomfort related to pleural effusion and thoracentesis but patient also had some upper chest and back discomfort in the cancer spec hours this morning which is
different than what he has had before. Exact cause of this discomfort is unclear. With minimal abnormality and troponin the possibility of angina is a consideration but there is some parts of his description which are less typical. Possibility of
pericardial symptoms is a consideration but symptoms now improved. Of note patient has had an echo with no significant pericardial effusion and with normal left ventricular function. PE is less likely on chronic anticoagulation but it was a
consideration in a patient with metastatic disease. Also consider other noncardiac causes. Issues reviewed with hospitalist would suggest the following
-Additional observation on telemetry
-Aspirin
-Serial troponins
-PPI
-D dimer
Abnormal troponin-troponin up to 0.03 additional evaluation as noted above
.
Pleural effusion. Patient post thoracentesis. Still with residual moderate effusion. It sounds as if there was some discussion regarding possible Pleurx catheter. Management directed by oncology.
.
Atrial fibrillation.
-off Tikosyn due to interaction with chemotherapy.
-Continue Eliquis
.
Metastatic thyroid cancer. Management as directed by oncology. Patient followed with Dr. Jere Cruz
Data Reviewed
-
Radiology: Image Personally Visualized and interpreted
CT Scan: Report Reviewed by me
Ultrasound: Report Reviewed by me
Medical Tests (Nuc Med, Echo etc): Report Reviewed by me
Labs: Labs Reviewed by me
[2024-04-10 19:24] LABS: Free T4 1.96 ng/dl (0.78-2.19)
--- NOTE | 2024-04-10 19:50 | HPS.HSE ---
Family Physician
-
Family Physician: Fransisca Richards PA-C
Chief Complaint
-
shortness of breath
History of Present Illness
Patient is [id number] male with past medical history significant for metastatic thyroid cancer, a-fib on Eliquis, CAD, hyperlipidemia and recurrent pleural effusion who presented to [facility] ED for evaluation of increased shortness of breath
over the past 2 days. He reports associated upper chest pressure today that he has not had before. Patient reports he is currently on break from chemo for past 10 days, has required increased thoracentesis and receiving wound treatment on lower
extremity.
Medical History
Past Medical History
Past Medical History: Reports Other
Additional Past Medical History:
metastatic thyroid cancer
a-fib on Eliquis
CAD
hyperlipidemia
recurrent pleural effusion
Past Surgical History: Reports Other
Additional Past Surgical History:
thyroidectomy
partial vocal cord resection
Social History
Tobacco: Non-smoker
Alcohol: Occasional (1-2 glasses per week )
Drug: None
Personal:
Living: With Family
Employment: Retired
Family History
Family History: Not pertinent
Allergies / Home Medications
Allergies reflects when Allergies were last updated in [facility].
Home Medications with original date entered in [facility]
Allergy/Medication List:
Allergies
Allergy/AdvReac Type Severity Reaction Status Date / Time
banana Allergy trouble Verified 04/10/24 11:00
breathing
cantaloupe Allergy Hives Uncoded 04/10/24 11:00
Home Medications
apixaban 5 mg tablet (Eliquis) 5 mg PO BID Blood clot prevention/tx 12/08/19
levothyroxine 150 mcg tablet 150 mcg PO MOTUTHFRSA Thyroid 12/08/19
metoprolol succinate 25 mg tablet,extended release 24 hr 25 mg PO BID #60 tabs 12/10/19
acetaminophen 500 mg tablet (Tylenol Extra Strength) 500 mg PO Q6HPRN PRN mild pain 01/18/24
cyanocobalamin (vitamin B-12) 1,000 mcg tablet 1,000 mcg PO DAILY Supplement 01/18/24
omega-3 240 tq-rsj-czj-cod liver oil 1,000 mg-vit A-vit D3 capsule (cod liver oil) 1 cap PO BID Supplement 01/18/24
levothyroxine 150 mcg tablet 225 mcg PO SUWE 04/10/24
magnesium oxide 400 mg PO DAILY 04/10/24
digoxin 125 mcg (0.125 mg) tablet 125 mcg PO NOON #40 tabs 04/13/24
white petrolatum 42 % topical ointment (Hydrophor) 1 applic topical DAILY #1 g 04/13/24
Review of Systems
-
History Source: Patient
Constitutional: Reports No Symptoms
EENT: Reports No Symptoms
Respiratory: Reports Other (shortness of breath prior to thoracentesis )
Cardiac: Reports Chest Pain
Abdomen/GI: Reports No Symptoms
: Reports No Symptoms
Musculoskeletal: Reports No Symptoms
Skin: Reports No Symptoms
Neurological: Reports No Symptoms
Endocrine: Reports No Symptoms
Hematologic/Lymphatic: Reports No Symptoms
Psych: Reports No Symptoms
Physical Exam
Vital Signs
Vital Signs
Temp Pulse Resp BP Pulse Ox
98.6 F 72 32 103/58 93
04/10/24 13:10 04/10/24 19:30 04/10/24 19:30 04/10/24 16:00 04/10/24 16:45
Physical Exam
General: Well Developed, Well Nourished, No Apparent Distress, Comfortable and Conversant
HEENT: NormoCephalic, Moist mucous membranes, Atraumatic, PERRLA, [place] Conjunctivae, Nose Appears Normal, Ears Appear Normal and Neck Nontender
Respiratory: Clear, Non Labored Respirations and Decreased Breath Sounds
Cardiac: S1/S2 and Regular Rhythm; No Murmur, Rub or Gallop
Breast: Deferred by me
GI: Soft, Non Tender, Non Distended and Normal Bowel Sounds; No Organomegaly
Rectal: Deferred by Provider
Genito-urinary: Deferred by me
Musculoskeletal: No Clubbing, No Cyanosis and No Edema
Skin: Warm and IV/Catheter Site; No Rash
Neuro: Awake, Alert, AO x 3 and Nonfocal/grossly intact
Psych: Calm and Intact Judgment/Insight
Laboratory Results
-
04/10/24 11:06
04/10/24 11:06
Laboratory Results
Total Bilirubin 1.1 mg/dl (0.2-1.3) 04/10/24 11:06
AST 14 U/L (17-59) L 04/10/24 11:06
ALT < 10 U/L (0-50) 04/10/24 11:06
Alkaline Phosphatase 93 U/L (38-126) 04/10/24 11:06
Troponin I 0.034 ng/ml D 04/10/24 17:56
Data Reviewed
-
Diagnostic Radiology: Report Reviewed by me
Medical Tests (Nuc Med, Echo, EKG etc): Report Reviewed by me
Lab Data: Labs Reviewed by me
Impression/Plan
-
IMPRESSION/PLAN:
#shortness of breath/chest pain
Trop: 0.014, 0.034
EKG: NORMAL SINUS RHYTHM
ECHO: Normal left ventricular size, wall thickness and systolic function.
LV ejection fraction is 60-65%.
No significant valvular disease.
No significant pericardial effusion
- Admit to telemetry
- trend troponin with EKGs
- Consult cardiology
#recurrent pleural effusion
thoracentesis x6
CXR: Large left pleural effusion with associated consolidation, progressed. Innumerable bilateral pulmonary metastases redemonstrated.
Post Thoracentesis CXR: No pneumothorax.
- one done in ED today, pulling 2L
#metastatic thyroid cancer (dx 2019)
s/p thyroidectomy
Follows at [facility]
on chemo holiday for lower left extremity wound healing
has done chemo and radiation
- continue levothyroxine
#a-fib
- continue Eliquis, dofetilide, metoprolol
#CAD
#hyperlipidemia
Code Status: Full code
DVT Prophylaxis: Eliquis
--- NOTE | 2024-04-10 20:02 | W.PN.UPDATE ---
Update Note
Progress Note Update
Patient seen in conjunction with ROZ. I agree with the findings on history and physical. I concur with the assessment and plan listed otherwise.
This is 73-year-old male with past medical history that is significant for metastatic thyroid cancer currently on chemotherapy complicated by her recurrent pleural effusions requiring therapeutic thoracentesis about every 2 to 3 weeks, atrial
fibrillation on anticoagulation and previously on dofetilide which is currently on hold due to interaction with the chemotherapy presents to the emergency department with a 1 day history of shortness of breath and chest tightness. Patient reported
that last night he had chest discomfort across his shoulders bilaterally. He reported that when he laid down the pain seemed to moved to the front of the shoulders. Since he felt short of breath as well and thought a fluid coming for is usual
thoracentesis. The pain improved overnight and was able to sleep but when he got up this morning he still noted that he had some chest discomfort across his shoulders. Currently has a was speaking to him he states that his chest pain-free. Denies
any nausea vomiting or diaphoresis. He had no known history of CAD. He last took his Eliquis about 24 hours ago and was held this morning due to, in 4 days thoracentesis.
He is currently status post 2 L left-sided thoracentesis. Shortness of breath is improved. He reports that he is currently chest pain-free.
He was afebrile a temp of 98.6, satting 93% on room air. Blood pressure was 103/58 with a pulse of 72. CBC was unremarkable. Electrolytes BUN/creatinine was unremarkable. Patient had a ECG which showed some slight early repolarization in leads I
and as well as lateral leads. Cardiology was consulted. His troponin was 0.014. Repeat troponin was 0.034. Chest x-ray shows a large left pleural effusion initially, status post tap the effusion has decreased and there was no pneumothorax.
There was no consolidation.
On my exam the patient was generally well-appearing and in no acute distress. Cardiac auscultation shows a regular rate and rhythm normal S1-S2 no rubs murmurs or gallops. Chest was clear to auscultation bilaterally. He has no reproducible chest
pain to palpation. He has bilateral lower extremity swelling.
Patient seen by cardiology in the ED. He is status post echocardiogram which was negative for pericarditis or pericardial effusion.
!. Chest Pain - Atypical chest pain but concerning ECG. Cards seen patient and ECG is not felt to be STEMI. He also is CP free currently. However trop shaun from 0.014 to 0.034.
- admit to telemetry observation
- cycle cardiac enzymes q 3, if repeat trop < 0.04, continue eliquis, if rapidly rising, will d/w cards and possibly start heparin
- aspirin 324 x 1
- give tylenol and GI ppx for non-cardiac chest discomfort
- d-dimer pending, if elevated which is likely, will get CT Pe
- cards consulted s/p echo: normal LV size, wall thickness and function. LV ejection fraction is 60-65%. No significant valvular disease. No significant pericardial effusion
2. pAFIB - Currently sinus
- dofetilide on hold given interaction with chemo
- continue metoprolol succinate bid
- continue ac
3. Recurrent Pleural effusion - Fluid analysis is exudative and likely malignant. No signs of active infection. No pneumothorax
- monitor for now.
4. Chronic Lymphedema
- compression socks
- saw wound today, the left leg wound healing well and cleared to restart chemo with onc follow up
DVT PPX - on apixaban
Code status - full code
--- NOTE | 2024-04-10 21:05 | HPS.HSE ---
Family Physician
-
Family Physician: Fransisca Richards PA-C
Chief Complaint
-
Chest pain
History of Present Illness
This is 73-year-old male with past medical history that is significant for metastatic thyroid cancer currently on chemotherapy complicated by her recurrent pleural effusions requiring therapeutic thoracentesis about every 2 to 3 weeks, atrial
fibrillation on anticoagulation and previously on dofetilide which is currently on hold due to interaction with the chemotherapy presents to the emergency department with a 1 day history of shortness of breath and chest tightness. Patient reported
that last night he had chest discomfort across his shoulders bilaterally. He reported that when he laid down the pain seemed to moved to the front of the shoulders. Since he felt short of breath as well and thought a fluid coming for is usual
thoracentesis. The pain improved overnight and was able to sleep but when he got up this morning he still noted that he had some chest discomfort across his shoulders. Currently has a was speaking to him he states that his chest pain-free. Denies
any nausea vomiting or diaphoresis. He had no known history of CAD. He last took his Eliquis about 24 hours ago and was held this morning due to, in 4 days thoracentesis.
He is currently status post 2 L left-sided thoracentesis. Shortness of breath is improved. He reports that he is currently chest pain-free.
He was afebrile a temp of 98.6, satting 93% on room air. Blood pressure was 103/58 with a pulse of 72. CBC was unremarkable. Electrolytes BUN/creatinine was unremarkable. Patient had a ECG which showed some slight early repolarization in leads I
and as well as lateral leads. Cardiology was consulted. His troponin was 0.014. Repeat troponin was 0.034. Chest x-ray shows a large left pleural effusion initially, status post tap the effusion has decreased and there was no pneumothorax.
There was no consolidation.
Medical History
Past Medical History
Past Medical History: Reports Arrhythmia (Proximal atrial fibrillation), Cancer (Metastatic thyroid cancer), HTN and Other (Migraine)
Past Surgical History: Reports Other
Social History
Tobacco: Non-smoker
Alcohol: None
Drug: None
Personal:
Living: With Family
Employment: Retired
Family History
Family History: Not pertinent
Allergies / Home Medications
Allergies reflects when Allergies were last updated in [facility].
Home Medications with original date entered in [facility]
Allergy/Medication List:
Allergies
Allergy/AdvReac Type Severity Reaction Status Date / Time
banana Allergy trouble Verified 04/10/24 11:00
breathing
cantaloupe Allergy Hives Uncoded 04/10/24 11:00
Home Medications
apixaban 5 mg tablet (Eliquis) 5 mg PO BID Blood clot prevention/tx 12/08/19
levothyroxine 150 mcg tablet 150 mcg PO MOTUTHFRSA Thyroid 12/08/19
metoprolol succinate 25 mg tablet,extended release 24 hr 25 mg PO BID #60 tabs 12/10/19
acetaminophen 500 mg tablet (Tylenol Extra Strength) 500 mg PO Q6HPRN PRN mild pain 01/18/24
cyanocobalamin (vitamin B-12) 1,000 mcg tablet 1,000 mcg PO DAILY Supplement 01/18/24
omega-3 240 vw-zys-pie-cod liver oil 1,000 mg-vit A-vit D3 capsule (cod liver oil) 1 cap PO BID Supplement 01/18/24
levothyroxine 150 mcg tablet 225 mcg PO SUWE 04/10/24
magnesium oxide 400 mg PO DAILY 04/10/24
Review of Systems
-
History Source: Patient
Constitutional: Reports No Symptoms
EENT: Reports No Symptoms
Respiratory: Reports Trouble Breathing
Cardiac: Reports Chest Pain
Abdomen/GI: Reports No Symptoms
: Reports No Symptoms
Musculoskeletal: Reports No Symptoms
Skin: Reports No Symptoms
Neurological: Reports No Symptoms
Endocrine: Reports No Symptoms
Hematologic/Lymphatic: Reports No Symptoms
Psych: Reports No Symptoms
Physical Exam
Vital Signs
Vital Signs
Temp Pulse Resp BP Pulse Ox
99.2 F 142 20 104/75 94
04/11/24 19:23 04/11/24 19:10 04/11/24 19:23 04/11/24 19:10 04/11/24 19:23
Physical Exam
General: Well Developed, Well Nourished, No Apparent Distress, Comfortable and Conversant
HEENT: NormoCephalic, Anicteric, Moist mucous membranes and Atraumatic
Respiratory: Clear
Cardiac: S1/S2 and Regular Rhythm
Breast: Deferred by me
GI: Soft, Non Tender, Non Distended and Normal Bowel Sounds
Rectal: Deferred by Provider
Genito-urinary: Deferred by me
Musculoskeletal: No Clubbing, No Cyanosis, Edema, Left Lower Extremity and Edema, Right Lower Extremity
Skin: Warm
Neuro: AO x 3 and Nonfocal/grossly intact
Laboratory Results
-
04/10/24
LABS REVIEWED
Data Reviewed
-
Diagnostic Radiology: Image Personally Visualized and interpreted and Report Reviewed by me
Medical Tests (Nuc Med, Echo, EKG etc): Image Personally Visualized and interpreted
Lab Data: Labs Reviewed by me
Old Records: Reviewed
Impression/Plan
-
IMPRESSION:
Patient seen by cardiology in the ED. He is status post echocardiogram which was negative for pericarditis or pericardial effusion.
1. Chest Pain - Atypical chest pain but concerning ECG. Cards seen patient and ECG is not felt to be STEMI. He also is CP free currently. However trop shaun from 0.014 to 0.034.
- admit to telemetry observation
- cycle cardiac enzymes q 3, if repeat trop < 0.04, continue eliquis, if rapidly rising, will d/w cards and possibly start heparin
- aspirin 324 x 1
- give tylenol and GI ppx for non-cardiac chest discomfort
- d-dimer pending, if elevated which is likely, will get CT Pe
- cards consulted s/p echo: normal LV size, wall thickness and function. LV ejection fraction is 60-65%. No significant valvular disease. No significant pericardial effusion
2. pAFIB - Currently sinus
- dofetilide on hold given interaction with chemo
- continue metoprolol succinate bid
- continue ac
3. Recurrent Pleural effusion - Fluid analysis is exudative and likely malignant. No signs of active infection. No pneumothorax
- monitor for now.
4. Chronic Lymphedema
- compression socks
- saw wound today, the left leg wound healing well and cleared to restart chemo with onc follow up
DVT PPX - on apixaban
Code status - full code
[2024-04-10 21:19] LABS: D-Dimer 0.47 ug/mlFEU (0.00-0.50)
--- NOTE | 2024-04-10 22:00 | PTCARENOTE ---
Pt arrived from ED via stretcher and ambulated with a rolling walker with the spouse at bedside. Pt is AAOx3, VSS, and w/o complaints of pain or chest discomfort. Pt is oriented to room, resting comfortably with call sheldon within reach.
--- NOTE | 2024-04-10 22:00 | PTCARENOTE ---
Pt stated he has a L lower extremity venous ulcer that has been cleaned and dressed by the wound clinic yesterday. RN was unable to complete the full skin assessment of the L lower extremity, because the wound clinic instructed him to not remove the
dressing for a week.
[2024-04-10 22:06] LABS: Troponin I 0.036 ng/ml
[2024-04-10] MEDS: ASPIRIN ENTERIC COATED 325 MG PO (23:20)
[2024-04-11] VITALS (17 sets, daily range): BP systolic 86–137; BP diastolic 54–75
[2024-04-11 01:11] LABS: Troponin I 0.026 ng/ml
[2024-04-11 06:06] LABS: Hematocrit 33.5 % (39.0-52.0); Hemoglobin 10.8 g/dL (13.0-18.0); Mean Corp Hgb Conc. 32.2 g/dL (33.0-37.0); Mean Corpuscular Hgb 29.1 pg (27.0-31.0); Mean Corpuscular Volume 90.3 fL (80.0-94.0); Mean Platelet Volume 9.3 fL (7.4-10.4); Platelet Count 264 10^3/uL (130-400); Red Blood Cell Count 3.71 10^6/uL (4.70-6.10); Red Cell Dist. Width 15.7 % (11.5-14.5); White Blood Cell Count 7.3 10^3/uL (4.8-10.8)
[2024-04-11 06:09] LABS: ALT (SGPT) < 10 U/L (0-50); AST (SGOT) 13 U/L (17-59); Albumin 2.6 g/dl (3.5-5.0); Alkaline Phosphatase 67 U/L (38-126); Blood Urea Nitrogen 17 mg/dl (9-20); Carbon Dioxide 27 mmol/L (22-30); Chloride 104 mmol/L (98-107); Estimated Creatinine Clearance 117 ml/min; Glucose 103 mg/dl (70-99); HDL Cholesterol 34 mg/dl; LDL Cholesterol, Calculated 72 mg/dl; Potassium 4.1 mmol/L (3.5-5.1); Sodium 137 mmol/L (135-145); Total Bilirubin 1.3 mg/dl (0.2-1.3); Total Cholesterol 120 mg/dl (50-199); Total Protein 4.9 g/dl (6.3-8.2); Triglyceride 74 mg/dl (10-149); Very Low Density Lipoprotein 14 mg/dl (0-30); eGFR > 60.00
[2024-04-11 06:17] LABS: Troponin I 0.018 ng/ml
[2024-04-11] MEDS: SYNTHROID 150 MCG PO (06:18)
[2024-04-11] MEDS: ELIQUIS 5 MG PO ×2 (08:50→19:10)
[2024-04-11] MEDS: VITAMIN B-12 1000 MCG PO (08:50)
[2024-04-11] MEDS: MAGNESIUM OXIDE 500 MG PO (08:50)
[2024-04-11] MEDS: TOPROL XL 25 MG PO ×2 (08:50→19:10)
[2024-04-11 10:31] LABS: Glycohemoglobin (HgbA1c) 5.8 % (4.0-5.6)
--- NOTE | 2024-04-11 12:04 | W.PN.HOSP.TC ---
Today's Communication/Plan
-
await cards input
possible d/c in AM if remains stable
Assessment / Plan
Assessment / Plan
pt is a 73 year old male
Chest Pain-- unclear etiology--could be related to large pleural effusion--s/p thoracentesis for 2L and no c/o this AM--Echo with 60-65% EF-- ECG is not felt to be STEMI--trop peaked at 0.034--cont Eliquis--D dimer negative
paroxysmal AFIB - Currently sinus-- dofetilide on hold given interaction with chemo- continue metoprolol succinate bid- continue ac
Recurrent Pleural effusion -s/p 2L removed by thoracentesis Fluid analysis is exudative and likely malignant. No signs of active infection. No pneumothorax --gets tapped every 2-3 weeks--? candidate for PleurX?
metastatic thyroid ca--on chemo
Chronic Lymphedema -- compression socks
DVT PPX - on apixaban
Code status - full code
Anticipated Discharge: 24 - 48 hours
Subjective/Interval History
-
Date of Service: April 11, 2024
pt without c/o
Objective Data
-
Labs:
Laboratory Results
04/11/24
05:21
WBC 7.3
Hgb 10.8 L
Hct 33.5 L
Plt Count 264 D
Sodium 137
Potassium 4.1
Chloride 104
Carbon Dioxide 27
BUN 17
Creatinine 0.7
Glucose 103 H
Calcium 8.0 L
Total Bilirubin 1.3
AST 13 L
ALT < 10
Alkaline Phosphatase 67
Vital Signs:
max temp for 24 hours
04/10/24
23:00
Temp 98.6 F
Vital Signs
Temp Pulse Resp BP Pulse Ox
97.5 F 77 20 95/57 95
04/11/24 11:44 04/11/24 11:44 04/11/24 11:44 04/11/24 11:44 04/11/24 11:44
I&O
04/10/24 04/11/24 04/12/24
06:59 06:59 06:59
Intake Total 480 / 480
Balance 480 / 480
Review of Systems
-
All other systems: Reviewed and negative
Physical Exam
-
General: Well Developed, Well Nourished and No Apparent Distress
HEENT: Normocephalic and Atraumatic
Respiratory: Decreased Breath Sounds (left lung field)
Cardiac: Regular Rhythm and S1/S2; Negative Murmur
GI: Soft, Nontender, Nondistended and Normal Bowel Sounds
Musculoskeletal: No Clubbing, No Cyanosis and No Edema
Skin: Warm
Neuro: Awake
--- NOTE | 2024-04-11 15:03 | W.PN.CD ---
Addendum entered and electronically signed by Sander Thompson MD 04/11/24 15:31:
Reviewed with Dr. Pathak plan to transfer to [facility].
BP limiting med options.
Low dose carizme being initiated
Original Note:
Today's Communication / Plan
-
Overall was feeling fine today no further rise in troponin from ER evaluation ECG this morning was stable and patient had no recurrent symptoms.
Patient happened to develop A-fib with RVR this afternoon despite the accelerated rates he tolerates it well with no complaints of chest discomfort he had some brief palpitations but currently at rest with heart rates in the 150s he states he feels
fine.
Continue Eliquis-
IV Cardizem for rate control
Limited antiarrhythmic options for this patient. Previously on dofetilide which was discontinued due to interaction with chemotherapy
Impression / Plan
-
Shortness of breath. Multiple factors may contribute. Patient's had issues with recurrent pleural effusion currently breathing is comfortable while at rest postthoracentesis. He still has residual moderate loculated pleural effusion. Patient
also has metastatic disease in the lungs which may also contribute to shortness of breath. Resolved after thoracentesis.
-Will need continued follow-up to monitor for recurrent effusion. Additional management as directed by oncology
Chest discomfort-exact etiology unclear. Patient may have some residual pleural discomfort related to pleural effusion and thoracentesis but patient also had some upper chest and back discomfort in the cook mayonnaise hours of admission. Spontaneous
resolution. Unclear if thoracentesis helped and improved symptoms. Peak troponin 0.3 echocardiogram with normal left ventricular function no clear evidence of NV. Initially there was some concern whether patient may be starting to have
pericardial symptoms pickup. However patient's bit continued to be chest pain-free and echo has no pericardial effusion. D-dimer was negative
In addition to the above it should be noted that patient's had no chest discomfort even with A-fib with RVR. Overall without clear evidence that chest discomfort related to coronary ischemia. No additional changes at this time. Additional
follow-up will be with Dr.
-Outpatient follow-up with Dr. Jules
.
Pleural effusion. Patient post thoracentesis. Still with residual moderate effusion. It sounds as if there was some discussion regarding possible Pleurx catheter. Management directed by oncology.
.
Atrial fibrillation.
-Recurrent A-fib with RVR occurred today. Initially he felt brief palpitations but currently he denies feeling the A-fib at rest despite accelerated rates in the 140s to 150s
-off Tikosyn due to interaction with chemotherapy.
-Continue Eliquis
-IV Cardizem.
.
Metastatic thyroid cancer. Management as directed by oncology. Patient followed with Dr. Jere Cruz
Physical Exam
Vital Signs/Labs
Vital Signs
Temp Pulse Resp BP Pulse Ox
97.5 F 77 20 95/57 95
04/11/24 11:44 04/11/24 11:44 04/11/24 11:44 04/11/24 11:44 04/11/24 11:44
04/10/24 04/11/24 04/12/24
06:59 06:59 06:59
Actual Weight 110.7 kg
04/11/24 05:21
04/11/24 05:21
Triglycerides 74 mg/dl (10-149) 04/11/24 05:21
LDL Cholesterol, Calc 72 mg/dl 04/11/24 05:21
VLDL Cholesterol, Calc 14 mg/dl (0-30) 04/11/24 05:21
HDL Cholesterol 34 mg/dl 04/11/24 05:21
Free T4 1.96 ng/dl (0.78-2.19) 04/10/24 11:06
LAB Results
04/10/24 04/10/24 04/10/24
15:03 15:22 17:56
Troponin I 0.014 Cancelled 0.034 D
04/10/24 04/10/24 04/11/24
21:34 21:38 00:30
Troponin I 0.036 H* Cancelled 0.026 D
04/11/24 04/11/24 04/11/24
03:34 05:21 06:00
Troponin I Cancelled 0.018 D Cancelled
04/11/24
06:34
Troponin I Cancelled
Physical Exam
Constitutional: No acute distress
Cardiovascular: Rhythm/rate is irregular (Tachycardic)
Respiratory: Respiratory effort normal
GI: Soft
Neuro/Psych: Alert
Data Reviewed
-
Date of Service: April 11, 2024
Medical Decision Making: Reviewed Test Results
EKG: Report Reviewed by me
Echo: Report Reviewed by me
X-Ray/CT/US/MRI/NUC/PET: Report Reviewed by me
Medical Tests (PFT, Pathology etc): Report Reviewed by me
Labs: Labs Reviewed by me
--- NOTE | 2024-04-11 15:15 | PTCARENOTE ---
pt Afiv w/RVR HR 150's sustaining on monitor. pt w/ no c/o pain, pt in bed talking with his . BP 100/55. Dr. Thompson and Dr. Rowe made aware. EKG done at this time. awaiting cards for further orders.
[2024-04-11] MEDS: CARDIZEM 2.5 IV (15:27)
[2024-04-11] MEDS: NSS 500 IV (15:28)
--- NOTE | 2024-04-11 16:08 | W.PN.UPDATE ---
Update Note
Progress Note Update
I spoke with the patient's oncologist Dr. Chahal at [place]. Patient's chemotherapeutic agent Lenvatinib. Dofetilide was discontinued due to drug drug interactions and patient has just been maintained on metoprolol now with recurrent A-fib.
Apparently amiodarone has the same interaction which would limit treatment.
-Will use IV Cardizem
-Can also use digoxin for additional rate control of note it does not interact with lenvatinib.
[2024-04-11] MEDS: LANOXIN 250 MCG IV (16:40)
--- NOTE | 2024-04-11 16:46 | TRANSFER ---
pt transferred to IVU. report given to NAKIA Tellez. pt's at bedside updated. belongings and walker from home sent with pt.
--- NOTE | 2024-04-11 17:04 | PTCARENOTE ---
received patient from 4w - HR 140 - 150, Cardizem gtt at 2.5mg. Cardizem gtt increased to 5mg and stat dig given. pt denies any S/S, at bedside
[2024-04-12] VITALS (38 sets, daily range): BP systolic 67–120; BP diastolic 43–102; BMI 33.1
--- NOTE | 2024-04-12 01:54 | PTCARENOTE ---
Assumed care of patient at change of shift. Tele remains Afib w/ occasional PVCs. Denies any pain or discomfort. Patient requires standby assist when ambulating, and voids in urinal at the side of the bed. HR accelerates in the 130-150's w/
ambulation, pt asymptomatic. IV Cardizem gtt remains at 5ml/hr. Patient aware of POC, call sheldon within reach.
[2024-04-12] MEDS: SYNTHROID 225 MCG PO (04:32)
[2024-04-12 04:36] LABS: Hematocrit 35.3 % (39.0-52.0); Hemoglobin 11.6 g/dL (13.0-18.0); Mean Corp Hgb Conc. 32.9 g/dL (33.0-37.0); Mean Corpuscular Hgb 29.5 pg (27.0-31.0); Mean Corpuscular Volume 89.8 fL (80.0-94.0); Mean Platelet Volume 9.4 fL (7.4-10.4); Platelet Count 288 10^3/uL (130-400); Red Blood Cell Count 3.93 10^6/uL (4.70-6.10); Red Cell Dist. Width 15.5 % (11.5-14.5); White Blood Cell Count 8.5 10^3/uL (4.8-10.8)
[2024-04-12 05:03] LABS: Blood Urea Nitrogen 16 mg/dl (9-20); Calcium 8.1 mg/dl (8.4-10.2); Carbon Dioxide 26 mmol/L (22-30); Chloride 105 mmol/L (98-107); Estimated Creatinine Clearance 117 ml/min; Glucose 111 mg/dl (70-99); Magnesium 2.2 mg/dl (1.6-2.3); Sodium 135 mmol/L (135-145); eGFR > 60.00
[2024-04-12] MEDS: ELIQUIS 5 MG PO ×2 (08:27→19:42)
[2024-04-12] MEDS: VITAMIN B-12 1000 MCG PO (08:27)
[2024-04-12] MEDS: TOPROL XL 25 MG PO ×2 (08:27→19:42)
[2024-04-12] MEDS: MAGNESIUM OXIDE 500 MG PO (08:28)
--- NOTE | 2024-04-12 10:08 | W.PN.CD ---
Today's Communication / Plan
-
Patient remains in A-fib. Rate control is suboptimal
Use of IV Cardizem limited by blood pressure patient currently on low-dose with borderline BP
Patient given digoxin yesterday single dose. Will give additional digoxin for rate control considering patient's blood pressure
Impression / Plan
-
Shortness of breath. Multiple factors may contribute. Patient's had issues with recurrent pleural effusion currently breathing is comfortable while at rest postthoracentesis. He still has residual moderate loculated pleural effusion. Patient
also has metastatic disease in the lungs which may also contribute to shortness of breath. Resolved after thoracentesis.
-Will need continued follow-up to monitor for recurrent effusion. Additional management as directed by oncology
Chest discomfort-exact etiology unclear. Patient may have some residual pleural discomfort related to pleural effusion and thoracentesis but patient also had some upper chest and back discomfort in the early breastfeeding care specialist hours of admission. Spontaneous
resolution. Unclear if thoracentesis helped and improved symptoms. Peak troponin 0.3 echocardiogram with normal left ventricular function no clear evidence of IN. Initially there was some concern whether patient may be starting to have
pericardial symptoms pickup. However patient's bit continued to be chest pain-free and echo has no pericardial effusion. D-dimer was negative
In addition to the above it should be noted that patient's had no chest discomfort even with A-fib with RVR. Overall without clear evidence that chest discomfort related to coronary ischemia. No additional changes at this time. Additional
follow-up will be with .
-Outpatient follow-up with Dr. Jules
.
Pleural effusion. Patient post thoracentesis. Still with residual moderate effusion. It sounds as if there was some discussion regarding possible Pleurx catheter. Management directed by oncology.
.
Atrial fibrillation.
-Recurrent A-fib with RVR occurred today. Initially he felt brief palpitations but currently he denies feeling the A-fib at rest despite accelerated rates in the 140s to 150s
-off Tikosyn due to interaction with chemotherapy.
-Continue Eliquis
-IV Cardizem limited by BP rate control still suboptimal patient given 1 dose of digoxin yesterday will give additional digoxin today and decrease Cardizem additional assessment by EP 04/13/2023
.
Metastatic thyroid cancer. Management as directed by oncology. Patient followed with Dr. Jere Cruz
Physical Exam
Vital Signs/Labs
Vital Signs
Temp Pulse Resp BP Pulse Ox
97.8 F 85 20 98/67 94
04/12/24 07:07 04/12/24 08:27 04/12/24 07:07 04/12/24 08:27 04/12/24 07:07
04/11/24 04/12/24 04/13/24
06:59 06:59 06:59
Actual Weight 110.7 kg
04/12/24 04:19
04/12/24 04:19
Magnesium 2.2 mg/dl (1.6-2.3) 04/12/24 04:19
Triglycerides 74 mg/dl (10-149) 04/11/24 05:21
LDL Cholesterol, Calc 72 mg/dl 04/11/24 05:21
VLDL Cholesterol, Calc 14 mg/dl (0-30) 04/11/24 05:21
HDL Cholesterol 34 mg/dl 04/11/24 05:21
Free T4 1.96 ng/dl (0.78-2.19) 04/10/24 11:06
LAB Results
04/10/24 04/10/24 04/10/24
15:03 15:22 17:56
Troponin I 0.014 Cancelled 0.034 D
04/10/24 04/10/24 04/11/24
21:34 21:38 00:30
Troponin I 0.036 H* Cancelled 0.026 D
04/11/24 04/11/24 04/11/24
03:34 05:21 06:00
Troponin I Cancelled 0.018 D Cancelled
04/11/24
06:34
Troponin I Cancelled
Physical Exam
Constitutional: No acute distress
Cardiovascular: Rhythm/rate is irregular
Respiratory: Respiratory effort normal
GI: Soft
Neuro/Psych: Alert
Data Reviewed
-
Date of Service: April 12, 2024
Medical Decision Making: Reviewed Test Results
EKG: Report Reviewed by me
Medical Tests (PFT, Pathology etc): Report Reviewed by me
Labs: Labs Reviewed by me
--- NOTE | 2024-04-12 10:37 | W.PN.HOSP.TC ---
Today's Communication/Plan
-
await HR response to digox
d/c planning
Assessment / Plan
Assessment / Plan
pt is a 73 year old male
Chest Pain--resolved-- unclear etiology--likely related to large pleural effusion--s/p thoracentesis for 2L--Echo with 60-65% EF-- ECG is not felt to be STEMI--trop peaked at 0.034--cont Eliquis--D dimer negative
paroxysmal AFIB - Currently sinus-- dofetilide on hold given interaction with chemo- continue metoprolol succinate bid- continue anticoagulation --digoxin added--dose as per cards
Recurrent Pleural effusion -s/p 2L removed by thoracentesis Fluid analysis is exudative and likely malignant. No signs of active infection. No pneumothorax --gets tapped every 2-3 weeks--? candidate for PleurX?
metastatic thyroid ca--on chemo
Chronic Lymphedema -- compression socks
DVT PPX - on apixaban
Code status - full code
Anticipated Discharge: > 48 hours
Subjective/Interval History
-
Date of Service: April 12, 2024
pt without c/o
Objective Data
-
Labs:
Laboratory Results
04/12/24
04:19
WBC 8.5
Hgb 11.6 L
Hct 35.3 L
Plt Count 288
Sodium 135
Potassium 4.0
Chloride 105
Carbon Dioxide 26
BUN 16
Creatinine 0.7
Glucose 111 H
Calcium 8.1 L
Vital Signs:
max temp for 24 hours
04/11/24
19:23
Temp 99.2 F
Vital Signs
Temp Pulse Resp BP Pulse Ox
97.8 F 85 20 98/67 94
04/12/24 07:07 04/12/24 08:27 04/12/24 07:07 04/12/24 08:27 04/12/24 07:07
I&O
04/11/24 04/12/24 04/13/24
06:59 06:59 06:59
Intake Total 600 / 600
Output Total 825 / 825
Balance -225 / -225
Review of Systems
-
All other systems: Reviewed and negative
Physical Exam
-
General: Well Developed, Well Nourished and No Apparent Distress
HEENT: Normocephalic and Atraumatic; Negative Oxygen
Respiratory: Clear to Auscultation; Negative Wheezes or Rhonchi
Cardiac: Irregular Rhythm and Tachycardic
GI: Soft, Nontender, Nondistended and Normal Bowel Sounds
Musculoskeletal: No Clubbing, No Cyanosis and No Edema
Neuro: Awake
Psych: Calm
[2024-04-12] MEDS: LANOXIN 250 MCG IV ×2 (10:55→16:18)
--- NOTE | 2024-04-12 11:20 | PTCARENOTE ---
Assumed care at 0700. BP 89-105/50-60's, Cardizem was infusing at 5 mg/hr, now stopped. IV digoxin given, returned to bed, mild lightheaded. HR 90-130's with activity BP 89/65, lightheadedness resolved with bedrest. Generalized anasarca b/l upper
arms, lymphedema b/l leg with compression wraps. at bedside, urinal and call sheldon in reach
--- NOTE | 2024-04-12 18:17 | PTCARENOTE ---
Patient in chair for dinner. A-Fib 113 with some intermittent burst into the 140-150's. Denies lightheadedness, BP 105/82, call sheldon in reach
--- NOTE | 2024-04-12 20:22 | PTCARENOTE ---
pt received at change of shift. pt seen and assessed in room with pt's at bedside. pt. sitting comfortably in chair at this time. AOx3, tele reading Afib 110s-150s. BP 90s-low 100s/60s. No complaints at this time. This RN explained plan of care
to pt, pt verbalizes understanding. Call sheldon within reach. Continuing to monitor at this time.
[2024-04-13] VITALS (12 sets, daily range): BP systolic 89–123; BP diastolic 66–82
--- NOTE | 2024-04-13 02:25 | PTCARENOTE ---
overnight, tele reading pause, pt bradying to 39 HR. pt assessed, asymptomatic, BP taken: 123/82. tele now reading afib 70s-90s. tele strip in pt chart. continuing to monitor at this time.
[2024-04-13 02:39] LABS: Hematocrit 38.6 % (39.0-52.0); Hemoglobin 12.5 g/dL (13.0-18.0); Mean Corp Hgb Conc. 32.4 g/dL (33.0-37.0); Mean Corpuscular Hgb 29.1 pg (27.0-31.0); Mean Platelet Volume 9.5 fL (7.4-10.4); Platelet Count 321 10^3/uL (130-400); Red Blood Cell Count 4.29 10^6/uL (4.70-6.10); Red Cell Dist. Width 15.6 % (11.5-14.5); White Blood Cell Count 8.6 10^3/uL (4.8-10.8)
[2024-04-13 03:12] LABS: Blood Urea Nitrogen 25 mg/dl (9-20); Calcium 8.7 mg/dl (8.4-10.2); Carbon Dioxide 25 mmol/L (22-30); Chloride 103 mmol/L (98-107); Estimated Creatinine Clearance 91 ml/min; Glucose 115 mg/dl (70-99); Magnesium 2.5 mg/dl (1.6-2.3); Potassium 4.4 mmol/L (3.5-5.1); Sodium 136 mmol/L (135-145); eGFR > 60.00
[2024-04-13] MEDS: SYNTHROID 150 MCG PO (05:04)
[2024-04-13] MEDS: ELIQUIS 5 MG PO (07:53)
[2024-04-13] MEDS: VITAMIN B-12 1000 MCG PO (07:53)
[2024-04-13] MEDS: TOPROL XL 25 MG PO (07:53)
[2024-04-13] MEDS: MAGNESIUM OXIDE 500 MG PO (07:53)
--- NOTE | 2024-04-13 10:19 | PTCARENOTE ---
Rec'd pt at handoff. AOX3. Tele- Afib 80s at rest and HR will increase up to 170s on ambulation. Pt reports no pain/discomfort at this time. Assessment completed as documented. Currently OOB in chair; call pito w/in reach.
--- NOTE | 2024-04-13 11:03 | W.PN.CD ---
Today's Communication / Plan
-
- Rate control with Digoxin and Metoprolol
- Stroke prevention with Eliquis
- Re-evaluate to assess the AF burden and symptoms in 1 month to assess further management.
Impression / Plan
-
.
Atrial fibrillation.
-Recurrent A-fib with RVR on 04/12
-Rate controlled now. still in AF
-Difficult to manage AF given contraindications for antiarrhythmics - due to interaction with chemotherapy.
-Continue Eliquis
- Thyroid - FT4 is normal.
-Rate control now with Digoxin. Normal Cr and K
-Re-evaluate in a month - if still in AF and had significant symptoms, AF ablation can be considered fro quality of life and to improve symptoms.
.
Metastatic thyroid cancer.
Management as directed by oncology. Patient followed with Dr. Jere Cruz
.
.
Pleural effusion.
- Patient post thoracentesis. Still with residual moderate effusion. It sounds as if there was some discussion regarding possible Pleurx catheter. Management directed by oncology.
Physical Exam
Vital Signs/Labs
Vital Signs
Temp Pulse Resp BP Pulse Ox
97.5 F 84 16 116/70 96
04/13/24 07:38 04/13/24 07:53 04/13/24 07:38 04/13/24 07:53 04/13/24 07:55
04/13/24 02:04
04/13/24 02:04
Magnesium 2.5 mg/dl (1.6-2.3) H 04/13/24 02:04
Triglycerides 74 mg/dl (10-149) 04/11/24 05:21
LDL Cholesterol, Calc 72 mg/dl 04/11/24 05:21
VLDL Cholesterol, Calc 14 mg/dl (0-30) 04/11/24 05:21
HDL Cholesterol 34 mg/dl 04/11/24 05:21
Free T4 1.96 ng/dl (0.78-2.19) 04/10/24 11:06
LAB Results
04/10/24 04/10/24 04/10/24
15:03 15:22 17:56
Troponin I 0.014 Cancelled 0.034 D
04/10/24 04/10/24 04/11/24
21:34 21:38 00:30
Troponin I 0.036 H* Cancelled 0.026 D
04/11/24 04/11/24 04/11/24
03:34 05:21 06:00
Troponin I Cancelled 0.018 D Cancelled
04/11/24
06:34
Troponin I Cancelled
Physical Exam
Constitutional: No acute distress and Comfortable
EENT: Anicteric and Moist mucous membranes
Cardiovascular: JVD pressure is normal, Rhythm/rate is irregular and Systolic murmur present
Respiratory: Respiratory effort normal, Wheeze Absent and Crackles Absent
GI: Soft, Non tender and Normal bowel sounds
Neuro/Psych: Alert, Oriented and AO x 3
Data Reviewed
-
Date of Service: April 13, 2024
Medical Decision Making: Reviewed Test Results
EKG: Tracing Personally Visualized and interpreted
Echo: Report Reviewed by me
Labs: Labs Reviewed by me
Old Records: Reviewed
--- NOTE | 2024-04-13 11:23 | WOUNDNOTE ---
L LATERAL LOWER LEG
--- NOTE | 2024-04-13 11:24 | WOUNDNOTE ---
WON RN note: Patient admitted with Chest pain.
See H&P for complete history. Lives with and follows at [facility] weekly.
PMH: Lymphedema, venous leg ulcers, A Fib, HTN, Metastatic thyroid cancer-on chemo.
Wound Location and type/assessment: Patient admitted with: Coflex wrap on L leg due to small healing venous ulcer. Reviewed wound center charts and spoke to Dr. Bradford. Patient has follow up apt with wound center on 04/16 of this week.
Internal Affairs Commander at bedside confirmed patient most likely going home tomorrow. R leg with own Farrow wrap in use, no open wounds. Very dry flaky skin on both legs, heels intact. + palpable pedal pulses. Sacrum intact. Patient states he has lymphedema
pump at home that he uses twice a day. at bedside assists patient with care at home.
Appetite: Good.
Pressure redistribution devices in place: Centrella air, leg elevation when sitting.
Plan: Spoke with Dr. Bradford who approved re application of Coflex wrap 30-40mmhg to L leg. Wrap to stay on for a week or until next wound care apt. Continue patient's own Farrow wraps to R leg daily. Moisturized legs with lotion will order mineral
oil to start tomorrow. Internal Affairs Commander at bedside agreed with the above.
Updated nurse Jenna, care plan and will follow as needed.
Note to case management of equipment requested for discharge: None.
Recommend follow up at wound care center upon discharge.
[2024-04-13] MEDS: LANOXIN 125 MCG PO (11:38)
--- NOTE | 2024-04-13 14:25 | W.PN.HOSP.TC ---
Addendum entered and electronically signed by Rosalinda Rowe MD 04/13/24 18:01:
I saw and evaluated the patient independently. I reviewed the resident�s note and agree with findings and plan as documented by Dr. Smith.
GENERAL: well developed, well nourished, male in no apparent distress
HEENT: NC/AT
HEART: irreg irreg
LUNGS : clear to auscultation bilaterally with decreased BS on left side
ABDOM: soft, nontender, nondistended, + bowel sounds
EXT: no cyanosis, clubbing, or edema
NEUROLOGIC: grossly intact
Chest Pain--resolved-- unclear etiology--likely related to large pleural effusion--s/p thoracentesis for 2L--Echo with 60-65% EF-- ECG is not felt to be STEMI--trop peaked at 0.034--cont Eliquis--D dimer negative
paroxysmal AFIB-- dofetilide on hold given interaction with chemo- continue metoprolol succinate bid- continue anticoagulation --digoxin added--dosed as per cards--cleared for d/c per cards
Recurrent Pleural effusion -s/p 2L removed by thoracentesis Fluid analysis is exudative and likely malignant. No signs of active infection. No pneumothorax --gets tapped every 2-3 weeks--? candidate for PleurX?
metastatic thyroid ca--on chemo
Chronic Lymphedema -- compression socks
DVT PPX - on apixaban
Code status - full code
Original Note:
Today's Communication/Plan
-
Continue Eliquis + Metoprolol
Rate controlled Afib with Digoxin
Cardiology input appreciated for Afib management
Assessment / Plan
Assessment / Plan
73 year old male with:
# Chest Pain--resolved--unclear etiology--likely related to large pleural effusion--s/p thoracentesis for 2L exudative fluid--Echo with 60-65% EF, no pericarditis or pericardial effusion-- ECG is not felt to be STEMI--troponin downtrending after
peaking at 0.036 on 04/10--D dimer negative
# Afib with RVR-- on Eliquis--dofetilide on hold given interaction with chemo-continue metoprolol succinate bid--now on digoxin--still in Afib but rate controlled--cardiology following--difficult to manage AF given contraindications for
antiarrhythmics (due to interaction with chemotherapy)--Cr and K normal--Reevaluate in a month - if still in AF and had significant symptoms, AF ablation can be considered for quality of life.
# Recurrent Pleural effusion -s/p 2L removed by thoracentesis--fluid analysis is exudative and likely malignant. No signs of active infection. No pneumothorax----patient is seen at [place]--next appointment ~2 weeks later--gets tapped every 2-3
weeks-- candidate for PleurX?
# Metastatic thyroid ca--on chemo
# Chronic Lymphedema -- compression socks
DVT PPX - on apixaban
Code status - full code
Anticipated Discharge: Within 24 hours
Subjective/Interval History
-
Date of Service: April 13, 2024
Objective Data
-
Labs:
Laboratory Results
04/13/24
02:04
WBC 8.6
Hgb 12.5 L
Hct 38.6 L
Plt Count 321
Sodium 136
Potassium 4.4
Chloride 103
Carbon Dioxide 25
BUN 25 H
Creatinine 0.9
Glucose 115 H
Calcium 8.7
Vital Signs:
Vital Signs
Temp Pulse Resp BP Pulse Ox
97.5 F 113 18 98/72 98
04/13/24 11:18 04/13/24 11:38 04/13/24 11:18 04/13/24 11:16 04/13/24 11:18
I&O
04/12/24 04/13/24 04/14/24
06:59 06:59 06:59
Intake Total 600 / 600 240 / 240
Output Total 825 / 825 950 / 950
Balance -225 / -225 -710 / -710
Review of Systems
-
History Source: Patient
Constitutional: Reports No Symptoms
EENT: Reports No Symptoms Reported
Respiratory: Reports No Symptoms; Denies Trouble Breathing
Cardiac: Reports No Symptoms; Denies Chest Pain or Palpitations
Abdomen/GI: Reports No Symptoms
Breast: Reports No Symptoms
Genitourinary: Reports No Symptoms
Musculoskeletal: Reports No Symptoms
Skin: Reports No Symptoms
Neuro: Reports No Symptoms
Endocrine: Reports No Symptoms
Hematologic / Lymphatic: Reports No Symptoms
Allergy / Immunology: Reports No Symptoms
Physical Exam
-
General: Well Developed, Well Nourished, No Apparent Distress and Comfortable
HEENT: Normocephalic
Respiratory: Decreased Breath Sounds (on left side)
Cardiac: S1/S2 and Irregular Rhythm; Negative Tachycardic
GI: Soft, Nontender and Nondistended
Genito-urinary: No Costovertebral Tender
Musculoskeletal: No Clubbing, No Cyanosis, No Edema and Other (Wound of left leg)
Skin: Warm and Dry
Neuro: Awake, Alert and Oriented
Hematologic / Lymphatic: No Lymphadenopathy
Psych: Calm
--- NOTE | 2024-04-13 16:19 | CM ---
spoke to pt in room, he is prev indep, lives with his in a 2 story home with 4 steps to enter. he has a walker he uses. he is current with [facility] and wouldlike them to continue, referral faxed/and pt accepted. plan is for dc to home when
medically stable.
--- NOTE | 2024-04-13 17:33 | PTCARENOTE ---
IV and tele removed. Discharge instructions reviewed w/ pt and spouse. Verbalizes understanding. Escorted via WC and staff assist. D/c to home. Discharge paperwork faxed to [facility].
--- NOTE | 2024-04-13 21:36 | W.DCSUMMARY ---
Addendum entered and electronically signed by Rosalinda Rowe MD 04/15/24 06:56:
Read, reviewed, and agree. See same day progress note for additional details. Time spent coordinating care, DC planning, review of DC plan of care with resident, transition of care, review of records in EMR, med rec, consults, notes, d/w
consultants, nursing, family, and CM = < 30 minutes
Original Note:
Discharge Summary
Discharge Data
Date of Admission: 04/10/24
Date of Discharge: 04/13/24
-
Pending Results: No
Hospital Course
Discharging Physician : Dr. Rosalinda Rowe, Dr. Kell Smith
Disposition : Home
Principal Discharge diagnosis :
Recurrent pleural effusion, likely malignant
Atrial Fibrillation with rapid ventricular response
Chronic Discharge diagnosis :
Chronic lymphedema
Metastatic thyroid cancer
Paroxysmal atrial fibrillation
Hospital Course : Pt is a 73 y/o male with pmhx of metastatic thyroid cancer on chemotherapy presenting to the ED with chest pain and shortness of breath. Patient receives therapeutic thoracentesis every 2-3 weeks for recurrent thoracentesis and
was due in 4 days prior to arrival to the ED. However, became symptomatic and came to ED. Initial EKG showed early repolarization in lead I and lateral leads, cardiology was not concerned about STEMI. Trop was negative. However, peaked at 0.034
and went back down to 0.018. Echocardiogram showed an EF of 60-65% with no pericardial effusion or pericarditis. D-dimer was negative. Thoracentesis was performed (2l dark bloody fluid) which was exudative on analysis. Patient's symptoms improved
after procedure however, there was residual moderate partially loculated left pleural effusion seen on chest x-ray and decreased breath sounds on the base of the left lung. Discharge was being planned when patient developed Afib with RVR. Cardiology
was on board, started patient on Cardizem drip but due to his lower BPs (in the 100s), switched to digoxin (first dose 04/12). Patient's heart rate was controlled. Difficult to manage AF given contraindications for antiarrhythmics - due to
interaction with chemotherapy.
On day of discharge, patient has rate-controlled Afib. Cardiology recommended digoxin 125 mcg daily at discharge with continuation of home meds (Eliquis + metoprolol). Cardiology will re-evaluate patient in one month, if still in AF and had
significant symptoms, AF ablation can be considered for quality of life.
Patient is medically stable for discharge - saturating at 96% on room air, hr 84, rr 16 - and will need to f/u with cardiology (on 05/20) and his oncologist at [facility] for further management and possible consideration of PleurX catheter.
Important imaging findings :
CXR (before thoracentesis) (04/10): Large left pleural effusion with associated consolidation, progressed. Innumerable bilateral pulmonary metastases redemonstrated.
Procedure findings :
Thoracentesis: Successful ultrasound-guided thoracentesis, yielding 2000 cc of dark bloody pleural fluid.
Discharge Plan
-
Patient Disposition: Home (Routine Discharge)
Discharge Diagnosis/Procedures: recurrent pleural effusion (likely malignant), atrial fibrillation with rapid ventricular response, chronic lymphedema, history of metastatic thyroid cancer, history of paroxysmal atrial fibrillation
Condition: Good
Diet: As tolerated
Activity: As tolerated
Driving Restrictions: As prior to admission
Bathing Restrictions: OK to Shower
Activity Restrictions/Additional Instructions:
Wound Care Instructions
R leg: Continue Farrow wrap, apply daily and remove at hs
apply mineral oil to R leg after bathing daily
L leg: Coflex wrap applied 04/13, do not remove until wound care apt. Keep dry.
Remove if excess pain and swelling then apply dry dressing and call wound center.
Lymphedema pumps as scheduled
leg elevation when sitting
Follow up at wound care center call for an appointment.
Referrals:
[facility] [Outside]
Elena Valencia MD [Active] - (Follow up scheduled on 05/20/24 at 10:20 am)
Fransisca Richards PA-C [Family Provider] -
Additional Discharge Medication Instructions: You should follow-up with your winding rack operator, Dr. Valencia, on 05/20/2024 at 10:20 am.
Prescriptions:
New
white petrolatum [Hydrophor] 42 % Ointment
1 applic topical DAILY Qty: 1 0RF
digoxin 125 mcg (0.125 mg) tablet
125 mcg PO NOON Qty: 40 0RF
Continued
levothyroxine 150 MCG tablet
150 mcg PO MOTUTHFRSA
Eliquis 5 MG tablet
5 mg PO BID
metoprolol succinate 25 MG tablet extended release 24 hr
25 mg PO BID Qty: 60 2RF
cyanocobalamin (vitamin B-12) 1,000 mcg Tablet
1,000 mcg PO DAILY
acetaminophen [Tylenol Extra Strength] 500 mg Tablet
500 mg PO Q6HPRN PRN (Reason: mild pain)
cod liver oil 240-1,000 mg Capsule
1 cap PO BID
levothyroxine 150 mcg Tablet
225 mcg PO SUWE
magnesium oxide 400 mg magnesium Tablet
400 mg PO DAILY
Discharge Orders:
Discharge Patient (As Directed); Ordered 04/13/24
Ordered By: Kell Lux
Care Plan Goals
Care Plan Goals:
Problem: Readiness for enhanced knowledge related to diagnosis and treatment plan
Goal: Understand your diagnosis and treatment plan needs, including medications if applicable.
Instructions: Know your diagnosis, underlying causes and treatment plan options, including medications if applicable. Consult with your health care team to learn about your diagnosis and treatment plan, including medications if applicable.
Discharge Date and Time
Discharge Date/Time: 04/13/24 17:40
Print Language: [place]
== END 2024-04-13 17:40 | disposition home health service (06) | DRG 181 ==
LOC: IVU 20:02
PROVIDERS: Nurse Practitioner Family; Nurse Practitioner Gerontology; Physician Assistant; Radiology Diagnostic Radiology; ADMITTING PHYSICIAN Internal Medicine; ATTENDING PHYSICIAN Internal Medicine; CONSULT PHYSICIAN Internal Medicine Cardiovascular Disease; EMERGENCY PHYSICIAN Student in an Organized Health Care Education/Training Program; FAMILY PHYSICIAN Physician Assistant Medical
PROC: 0W9B3ZZ Drainage of Left Pleural Cavity, Percutaneous Approach (ICD-10-PCS; 2024-04-10)
DX: C78.01 Secondary malignant neoplasm of right lung (principal); I42.9 Cardiomyopathy, unspecified; J91.0 Malignant pleural effusion; J98.11 Atelectasis; C73 Malignant neoplasm of thyroid gland; C78.02 Secondary malignant neoplasm of left lung; I25.10 Atherosclerotic heart disease of native coronary artery without angina pectoris; G43.909 Migraine, unspecified, not intractable, without status migrainosus; I10 Essential (primary) hypertension; E89.0 Postprocedural hypothyroidism; I48.0 Paroxysmal atrial fibrillation; I89.0 Lymphedema, not elsewhere classified; H26.9 Unspecified cataract; E78.5 Hyperlipidemia, unspecified; Z79.01 Long term (current) use of anticoagulants; Z92.21 Personal history of antineoplastic chemotherapy; Z87.19 Personal history of other diseases of the digestive system; Z79.890 Hormone replacement therapy; Z80.42 Family history of malignant neoplasm of prostate; Z82.49 Family history of ischemic heart disease and other diseases of the circulatory system; Z91.018 Allergy to other foods; Z92.3 Personal history of irradiation
CPT/HCPCS: 32555; 71045; 71046; 80048; 80053; 80061; 82945; 83036; 83615; 83735; 83986; 84439; 84443; 84484; 85025; 85027; 85379; 87015; 87070; 87205; 89051; 93005; 93306; 99285; J1160; Q9950

== ENCOUNTER → 2024-04-16 11:29 | Outpatient (REF) | payer OTHER, SELFPAY | LOC: WOUND 11:29 | PROVIDERS: ATTENDING PHYSICIAN Surgery; FAMILY PHYSICIAN Physician Assistant Medical | DX: I87.312 Chronic venous hypertension (idiopathic) with ulcer of left lower extremity (principal); L97.222 Non-pressure chronic ulcer of left calf with fat layer exposed; I89.0 Lymphedema, not elsewhere classified | CPT/HCPCS: 29581; 99213 ==

== ENCOUNTER → 2024-04-23 11:30 | Outpatient (REF) | payer OTHER, SELFPAY | LOC: WOUND 11:30 | PROVIDERS: ATTENDING PHYSICIAN Surgery | DX: I87.312 Chronic venous hypertension (idiopathic) with ulcer of left lower extremity (principal); L97.222 Non-pressure chronic ulcer of left calf with fat layer exposed; C73 Malignant neoplasm of thyroid gland; I89.0 Lymphedema, not elsewhere classified; Z79.01 Long term (current) use of anticoagulants; I48.19 Other persistent atrial fibrillation | CPT/HCPCS: 29581; 99213 ==

== ENCOUNTER → 2024-05-01 11:26 | Outpatient (REF) | payer OTHER, SELFPAY | LOC: WOUND 11:26 | PROVIDERS: ATTENDING PHYSICIAN Surgery; FAMILY PHYSICIAN Physician Assistant Medical | DX: I87.312 Chronic venous hypertension (idiopathic) with ulcer of left lower extremity (principal); L97.222 Non-pressure chronic ulcer of left calf with fat layer exposed; C73 Malignant neoplasm of thyroid gland; I89.0 Lymphedema, not elsewhere classified; Z79.01 Long term (current) use of anticoagulants; I48.19 Other persistent atrial fibrillation | CPT/HCPCS: 99212 ==

== ENCOUNTER → 2024-05-20 11:31 | Outpatient (REF) | payer OTHER, SELFPAY | LOC: RAD 11:31 | PROVIDERS: ATTENDING PHYSICIAN Internal Medicine Cardiovascular Disease; FAMILY PHYSICIAN Physician Assistant Medical | DX: I48.19 Other persistent atrial fibrillation (principal) | CPT/HCPCS: 71046 ==

== ENCOUNTER 2024-06-04 06:00 | Day surgery (SDC) | payer OTHER, SELFPAY ==
[2024-05-28 12:57] VITALS: BMI 37.3
[2024-05-28 13:21] LABS: % Basophils 0.6 % (0-2); % Eosinophils 5.1 % (0-6); % Immature Granulocytes 0.2 % (0-0.5); % Lymphocytes 11.6 % (20.5-51.1); % Monocytes 9.8 % (1.7-9.3); % Neutrophils 72.7 % (42.2-75.2); Absolute Eosinophils 0.3 10^3/uL (0-0.7); Absolute Lymphocytes 0.7 10^3/uL (1.2-3.4); Absolute Monocytes 0.6 10^3/uL (0.1-0.6); Absolute Neutrophils 4.5 10^3/uL (1.4-6.5); Hematocrit 42.9 % (39.0-52.0); Hemoglobin 14.4 g/dL (13.0-18.0); Mean Corp Hgb Conc. 33.6 g/dL (33.0-37.0); Mean Corpuscular Hgb 29.3 pg (27.0-31.0); Mean Corpuscular Volume 87.2 fL (80.0-94.0); Mean Platelet Volume 9.8 fL (7.4-10.4); Nucleated Red Blood Cells % 0 % (-); Platelet Count 211 10^3/uL (130-400); Red Blood Cell Count 4.92 10^6/uL (4.70-6.10); Red Cell Dist. Width 16.3 % (11.5-14.5); White Blood Cell Count 6.2 10^3/uL (4.8-10.8)
[2024-05-28 13:35] LABS: ALT (SGPT) 10 U/L (0-50); AST (SGOT) 17 U/L (17-59); Albumin 3.3 g/dl (3.5-5.0); Alkaline Phosphatase 93 U/L (38-126); Blood Urea Nitrogen 28 mg/dl (9-20); Calcium 9.5 mg/dl (8.4-10.2); Carbon Dioxide 24 mmol/L (22-30); Chloride 104 mmol/L (98-107); Estimated Creatinine Clearance 64 ml/min; Glucose 115 mg/dl (70-99); Potassium 4.4 mmol/L (3.5-5.1); Sodium 137 mmol/L (135-145); Total Bilirubin 1.4 mg/dl (0.2-1.3); Total Protein 5.8 g/dl (6.3-8.2); eGFR > 60.00
[2024-06-04] VITALS (11 sets, daily range): BP systolic 103–128; BP diastolic 65–86; BMI 30.4
--- NOTE | 2024-06-04 07:10 | PTCARENOTE ---
PT LE WITH PURPLISH DISCOLORATION AND THICK SCALY SKIN ON B/L FEET. LEFT GIL WITH GAUZE DSG WITH SEROUS FLUID SEEPING THROUGH. DR RODRIGES AWARE. PT TO F/U WITH PCP DO FURTHER ADDRESS LE SKIN ISSUE. PT WITH +2 DP PULSES B/L. LEGS WITH +3-4 EDEMA D/T
LYMPHEDEMA
[2024-06-04 08:59] LABS: ACT-LR - POC 310 Seconds (116-155)
[2024-06-04 09:21] LABS: ACT-LR - POC 331 Seconds (116-155)
[2024-06-04 09:48] LABS: ACT-LR - POC 387 Seconds (116-155)
--- NOTE | 2024-06-04 10:20 | ITS.CL.ABL ---
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
Ablation
Procedure Report:
AFIB ablation:
Mr. France is a very pleasant 73 yr old gentleman with symptomatic persistent AF, unable to tolerate Tikosyn with chemotherapy, is recommended for atrial fibrillation ablation.
Date of the Procedure:
06/04/2024
Indications:
Persistent atrial fibrillation
Pre-Operative Diagnosis:
Persistent atrial fibrillation
Post-Operative Diagnosis:
Persistent atrial fibrillation
Procedure Performed:
Atrial fibrillation ablation with Pulsed-Field approach for pulmonary vein isolation
Performing Physician:
Elena Valencia MD
Assistants:
EP staff
Anesthesia:
See anesthesia records
Detailed Description of the Procedure:
Written informed consent was obtained from the patient after a full explanation of the risks and benefits of the procedure including the risks of sedation and anesthesia.
The patient was brought to the electrophysiology laboratory in stable condition in fasting state. Continuous electrocardiographic and hemodynamic monitoring was initiated.
The initial rhythm was atrial fibrillation.
The procedure site was meticulously prepared with surgical scrub and allowed to dry with no pooling. Sterile draping was applied to cover the procedure site. The image intensifier was draped with sterile bag and positioned over the patient. After
infusion of local anesthetic, vascular access was obtained under ultrasound guidance and sheaths were placed over guide wire as detailed below.
Sheath and Catheter Placement:
The following catheters / sheaths were placed
Sheaths:
��������� 17Fr steerable sheath (Faradrive�, [employer]) in right femoral
��������� 9Fr in right femoral vein
��������� 7Fr in right femoral vein
Catheters:
��������� MARLYN HD Grid mapping catheter � at locations of RA, LA
��������� Farawave� PFA catheter
��������� ICE catheter -AcuNav - at locations of RA, SVC, and RV.
��������� Decapolar Bard catheter in RA and CS
Intracardiac ECHO:
An 8-South African AcuNav intracardiac ECHO (ICE) probe was advanced through the 9-South African sheath in the right femoral vein into the right atrium under fluoroscopic and ICE ultrasound image guidance and a baseline ECHO study was performed. The left atrial
size was dilated. There was moderate tricuspid regurgitation. The aortic valve was grossly normal. There was decreased systolic left ventricular systolic functions. There is trace pericardial effusion. All the four veins were identified and has flow
identified. There was good flow noted in the EMILIANO.
During the procedure, ICE was used for monitoring of complications, guidance of trans-septal puncture, monitor the catheter position and tracking ablation lesions. No change in the pericardial space noted throughout the procedure.
Trans-septal Puncture:
Heparin was initiated and infused to maintain appropriate ACT. A pigtail guidewire was advanced through the 8-South African sheath in the right femoral vein into the superior vena cava under fluoroscopic and ICE guidance. The 9-South African sheath was exchanged
for a Faradrive sheath which was advanced into the superior vena cava. A transseptal RF pigtail via Faradrive connect system was utilized to perform the trans-septal puncture. The apparatus was withdrawn until it was in contact with the fossa
ovalis. The position was adjusted based on fluoroscopy and ultrasound images from ICE. Under fluoroscopic, hemodynamic and ICE ultrasound guidance, left atrium was cannulated by applying RF energy. Once atrial septum was cannulated, the pigtail wire
was advanced through the needle into the left atrium. The guide wire was advanced into the left superior pulmonary vein. Both the sheath and the dilator was advanced into the left atrium. The dilator with the needle was withdrawn. Blood was
aspirated from the Faradrive sheath and arterial blood confirmed. The sheath was flushed. Saline injection noted into the left atrium on ICE. The mapping catheter was advanced in the sheath into the left pulmonary vein. Left atrial pressure was
measured.
3D Electroanatomic Mapping:
Using the HD Grid catheter advanced through sheath into the left atrium, an electroanatomic map (EAM) of the left atrium was created using IRL Connect mapping system. The map was used for localization of catheter position and tacking of ablation
lesions.
The EAM of the left atrium showed 4 pulmonary veins with all 4 veins electrically connected to the body the LA. It showed only scattered areas of low voltage on the posterior and anterior wall of the LA in AF but had good signals in sinus rhythm.
The LA was dilated in size.
Following the EAM, preparation were made for ablation.
Ablation:
Ablation # 1: Pulmonary vein Isolation:
Glycopyrrolate 0.2 mg was given prior to the placement of ablation. Using Farawave pulsed field ablation system, pulmonary vein isolation was achieved. First the ablation catheter was placed in the LSPV and ostial ablation lesions were performed in
an �[place]� formation of the Farawave configuration and a counter clock monzon rotation was done and ablated to cover the area between the electrodes. Then the catheter was placed on the antral location in �Flower� configuration and multiple ablation
lesions were placed circumferentially on the antrum of the vein.
In the similar fashion, the LIPV were isolated.
Then the catheter was moved to right sided veins. The ostial and antral ablations were placed as noted above.
Patient remained in atrial fibrillation.
Cardioversion:
Once the PV isolation was achieved, decision was made to proceed with cardioversion. A 200 J biphasic shock was applied on the amna posterior Zoll patches and sinus rhythm was achieved. No significant pause noted.
Reconnections:
The LSPV and carinal areas were noted to have signals and Farawave ablation catheter was placed and left sided veins were isolated both ostial and antral lesions.
EPS and Confirmation of the PVI and bidirectional block:
Following achievement of entrance block at the pulmonary veins, pacing from the HD catheter in each of the four veins at 10 milliamps for 2 milliseconds showed entrance and exit block. All PVI were rechecked at the end of the case and remained
isolated. Entrance and exit block were demonstrated in all veins.
Post ablation Electroanatomic mapping:
Once ablation was completed, the EAM of the LA was done again in sinus rhythm with excellent demarcation of LA myocardium and isolated antral tissue. There was no significant scarring noted in the LA.
The EMILIANO had healthy signals and was not isolated.
Procedure End
ICE study was done again that showed no epicardial accumulation. No complications noted.
Following the completion of the EP study, catheters were removed. Protamine 40 mg was given at the end of the procedure and ACT was checked repeatedly. The sheaths were removed and hemostasis achieved with Figure of 8 suture and manual compression
after acceptable ACT is achieved.
Left atrial Pressure:
Mean LA pressure was 7mmHg
Mean RA pressure was 4mmHg
Estimated Blood loss:
<10 cc
Specimens Removed:
None.
Implants / Devices:
None
Urine output:
None
Packs / Drains/ Tubes:
None
Instrument / Sponge Count Correct:
Yes
Complications of the Procedure:
None
Condition of Patient at Time of Transfer:
Hemodynamically stable with no neurological or vascular compromise.
Summary:
Successful atrial fibrillation ablation with Pulsed Field approach for pulmonary vein isolation.
Figures from the Procedure:
Figure 1: The electroanatomic mapping (EAM) of the left atrium with bipolar voltage (purple indicates normal electrical activity with sheffield as no myocardial muscle electric activity indicating a line of block or scar.
--- NOTE | 2024-06-04 13:59 | W.PN.UPDATE ---
Update Note
Progress Note Update
73 yo WM s/p PVI (same day). He denies cp, sob, oanh diet, EKG SR, R fem site c/d/i, soft. He will resume Eliquis tonight. He will stop digoxin and continue metoprolol. Activity restrictions reviewed. 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 He is for d/c home
after 3pm if groin stable and voiding.
== END 2024-06-04 15:00 | disposition home or self-care (01) ==
LOC: CATH 06:00
PROVIDERS: ATTENDING PHYSICIAN Internal Medicine Cardiovascular Disease; FAMILY PHYSICIAN Physician Assistant Medical
DX: I48.19 Other persistent atrial fibrillation (principal); I10 Essential (primary) hypertension; I42.0 Dilated cardiomyopathy; E03.9 Hypothyroidism, unspecified; Z79.01 Long term (current) use of anticoagulants; Z79.890 Hormone replacement therapy; Z79.899 Other long term (current) drug therapy
CPT/HCPCS: C1759; C1892; C1730; 36415; 80053; 85025; 85347; 86850; 86900; 86901; 93005; 93656; C1732; C1733; C1766; C1894

== ENCOUNTER → 2024-06-12 09:59 | Outpatient (REF) | payer OTHER, SELFPAY | LOC: WOUND 09:59 | PROVIDERS: ATTENDING PHYSICIAN Surgery; FAMILY PHYSICIAN Physician Assistant Medical | DX: I87.312 Chronic venous hypertension (idiopathic) with ulcer of left lower extremity (principal); L97.222 Non-pressure chronic ulcer of left calf with fat layer exposed; L97.322 Non-pressure chronic ulcer of left ankle with fat layer exposed; I89.0 Lymphedema, not elsewhere classified; I48.19 Other persistent atrial fibrillation; C73 Malignant neoplasm of thyroid gland; Z79.01 Long term (current) use of anticoagulants | CPT/HCPCS: 11042 ==

== ENCOUNTER → 2024-06-18 10:31 | Outpatient (REF) | payer OTHER, SELFPAY | LOC: WOUND 10:31 | PROVIDERS: ATTENDING PHYSICIAN Surgery | DX: I87.312 Chronic venous hypertension (idiopathic) with ulcer of left lower extremity (principal); L97.222 Non-pressure chronic ulcer of left calf with fat layer exposed; L97.322 Non-pressure chronic ulcer of left ankle with fat layer exposed; I89.0 Lymphedema, not elsewhere classified; I48.19 Other persistent atrial fibrillation; C73 Malignant neoplasm of thyroid gland; Z79.01 Long term (current) use of anticoagulants | CPT/HCPCS: 11042 ==

== ENCOUNTER → 2024-06-26 11:32 | Outpatient (REF) | payer OTHER, SELFPAY | LOC: WOUND 11:32 | PROVIDERS: ATTENDING PHYSICIAN Surgery; FAMILY PHYSICIAN Physician Assistant Medical | DX: I87.312 Chronic venous hypertension (idiopathic) with ulcer of left lower extremity (principal); L97.222 Non-pressure chronic ulcer of left calf with fat layer exposed; L97.322 Non-pressure chronic ulcer of left ankle with fat layer exposed; I89.0 Lymphedema, not elsewhere classified; I48.19 Other persistent atrial fibrillation; C73 Malignant neoplasm of thyroid gland; Z79.01 Long term (current) use of anticoagulants | CPT/HCPCS: 11042 ==

== ENCOUNTER → 2024-07-03 11:36 | Outpatient (REF) | payer OTHER, SELFPAY | LOC: WOUND 11:36 | PROVIDERS: ATTENDING PHYSICIAN Surgery; FAMILY PHYSICIAN Physician Assistant Medical | DX: I87.312 Chronic venous hypertension (idiopathic) with ulcer of left lower extremity (principal); L97.222 Non-pressure chronic ulcer of left calf with fat layer exposed; L97.322 Non-pressure chronic ulcer of left ankle with fat layer exposed; I89.0 Lymphedema, not elsewhere classified; I48.19 Other persistent atrial fibrillation; C73 Malignant neoplasm of thyroid gland; Z79.01 Long term (current) use of anticoagulants | CPT/HCPCS: 11042 ==

== ENCOUNTER → 2024-09-02 08:56 | Outpatient (REF) | payer OTHER, SELFPAY ==
[2024-09-02 09:10] VITALS: BP 130/71; BP_SYST 76
[2024-09-02 09:50] VITALS: BP 123/63; BP_SYST 74
== END ==
LOC: RADI 08:56
PROVIDERS: ATTENDING PHYSICIAN Nurse Practitioner Gerontology; FAMILY PHYSICIAN Physician Assistant Medical
DX: J90 Pleural effusion, not elsewhere classified (principal)
CPT/HCPCS: 32555; 71045

== ENCOUNTER → 2024-09-18 13:39 | Outpatient (REF) | payer OTHER, SELFPAY ==
[2024-09-18 13:51] VITALS: BP 118/69; BP_SYST 74
[2024-09-18 14:05] VITALS: BP 109/63; BP_SYST 70
[2024-09-18 14:28] VITALS: BP 109/63
== END ==
LOC: RADI 13:39
PROVIDERS: ATTENDING PHYSICIAN Internal Medicine
DX: J90 Pleural effusion, not elsewhere classified (principal)
CPT/HCPCS: 32555; 71045

== ENCOUNTER 2024-10-05 12:00 | Emergency (ER) | payer OTHER, SELFPAY ==
[2024-10-05 12:10] VITALS: BP 92/60
[2024-10-05 12:48] LABS: Hematocrit 29.8 % (39.0-52.0); Hemoglobin 9.1 g/dL (13.0-18.0); Mean Corp Hgb Conc. 30.5 g/dL (33.0-37.0); Mean Corpuscular Volume 83.0 fL (80.0-94.0); Nucleated Red Blood Cells % 0 % (-); Platelet Count 359 10^3/uL (130-400); Red Cell Dist. Width 16.9 % (11.5-14.5)
[2024-10-05 13:09] LABS: Troponin I < 0.012 ng/ml
[2024-10-05 13:18] LABS: ALT (SGPT) < 10 U/L (0-50); AST (SGOT) 12 U/L (17-59); Albumin 3.2 g/dl (3.5-5.0); Alkaline Phosphatase 114 U/L (38-126); Blood Urea Nitrogen 19 mg/dl (9-20); Calcium 9.1 mg/dl (8.4-10.2); Carbon Dioxide 33 mmol/L (22-30); Chloride 100 mmol/L (98-107); Glucose 111 mg/dl (70-99); Potassium 4.5 mmol/L (3.5-5.1); Sodium 137 mmol/L (135-145); Total Protein 6.0 g/dl (6.3-8.2); eGFR > 60.00
--- NOTE | 2024-10-05 15:19 | ED.GENMED ---
History of Present Illness
General
Chief Complaint: Fatigue
Source: patient and spouse
Exam Limitations: none
Time Seen by Provider: 10/05/24 15:10
Nursing documentation reviewed up to this point in time: agreed with
History of Present Illness
History of Present Illness:
74-year-old male presents with fatigue shortness of breath history of thyroid cancer on oral chemo
Typically gets thoracentesis every few weeks either at [facility] or [place] last one was a few weeks ago, no fevers no vomiting does feel short of breath he has chronic lymphedema he is able to ambulate with walker, has had no fever
Past History
Past History
ED Past Medical History: Arrthythmia, HTN and Other (Thyroid cancer, diverticulosis, vomiting ulcerations, migraines)
Social History
Tobacco: Non-smoker
Alcohol: None
Drug: None
Personal:
Living: with family
Employment: Retired
Review of Systems
Review of Systems
All Other Systems: Not applicable
Constitutional: Reports fatigue; Denies fever
Respiratory: Reports trouble breathing; Denies cough or hemoptysis
ABD/GI: Reports no symptoms
: Reports no symptoms
Musculoskeletal: Reports edema
Phy Exam
Physical Exam
Physical Exam:
Physical Exam
General: Nontoxic chronically ill male
Neck: No jaw
Heart: s1/s2 regular rate and rhythm, no murmur. equal radial pulses.
Lungs: Diminished breath sounds on left
Abdomen: Not tender
Neuro: alert and oriented. no focal neurological deficits
Skin: no rash
Psychiatric: well kept. interactive and cooperative
Extremities: Edema and compression stocking
Course
Orders/Labs/Results
Orders:
Orders
10/05/24 12:13
Electrocardiogram (*1) Urgent
Reason for Study: Shortness of Breath
EKG- Treatment ONCE
CR Chest - 2 Views Urgent
Comment:
Reason For Exam: SOB
10/05/24 12:33
Complete Blood Count/With Diff Urgent
Comprehensive Metabolic Panel Urgent
NT-proBNP Urgent
Troponin I Urgent
10/05/24 15:15
Consult Interventional Radiology [[facility] CONSULT] Urgent
Consulting Provider: Iggy Jain
Was physician already notified: Yes
Procedure being ordered, including laterality if applicable: no labs i think are needed
Acknowledgement that appropriate orders are entered: Yes
10/05/24 15:35
Type+Screen Urgent
10/05/24 15:41
[facility] CONSULT Urgent
Consulting Provider: Iggy Jain
Was physician already notified: Yes
Procedure being ordered, including laterality if applicable: left thoracentesis, no labs needed
Acknowledgement that appropriate orders are entered: Yes
10/05/24 16:17
Chest X-ray Portable [CR Chest Portable - 1 View] Urgent
Comment:
Reason For Exam: Left Thoracentesis
Reason Study Needs to be Portable: Unable to Transport
Abnormal Lab Results
10/05/24
12:33
WBC 13.3 H 10^3/uL
(4.8-10.8)
RBC 3.59 L 10^6/uL
(4.70-6.10)
Hgb 9.1 L g/dL
(13.0-18.0)
Hct 29.8 L %
(39.0-52.0)
MCH 25.3 L pg
(27.0-31.0)
MCHC 30.5 L g/dL
(33.0-37.0)
RDW 16.9 H %
(11.5-14.5)
Abs Immat Gran (auto) 0.1 H 10^3/uL
(0-0.05)
Absolute Neuts (auto) 9.8 H 10^3/uL
(1.4-6.5)
Absolute Lymphs (auto) 1.1 L 10^3/uL
(1.2-3.4)
Absolute Monos (auto) 1.3 H 10^3/uL
(0.1-0.6)
Absolute Eos (auto) 0.9 H 10^3/uL
(0-0.7)
Immature Gran % 0.6 H %
(0-0.5)
Lymphocytes % 8.0 L %
(20.5-51.1)
Monocytes % 9.7 H %
(1.7-9.3)
Eosinophils % 7.0 H %
(0-6)
Carbon Dioxide 33 H mmol/L
(22-30)
Glucose 111 H mg/dl
(70-99)
AST 12 L U/L
(17-59)
Total Protein 6.0 L g/dl
(6.3-8.2)
Albumin 3.2 L g/dl
(3.5-5.0)
10/05/24 12:33
10/05/24 12:33
Vital Signs
Initial and Last Documented VS:
Initial Vital Signs
Temp Pulse Resp BP Pulse Ox
98.0 F 83 20 92/60 97
10/05/24 12:10 10/05/24 12:10 10/05/24 12:10 10/05/24 12:10 10/05/24 12:10
Last Documented Vital Signs
Temp Pulse Resp BP Pulse Ox
97.6 F 60 30 107/77 97
10/05/24 16:00 10/05/24 16:48 10/05/24 16:48 10/05/24 16:47 10/05/24 16:48
MDM/Problems Addressed
Differential Diagnosis Includes:
Fatigue electrolyte abnormality symptomatic pleural effusion anemia no overt infectious symptoms
MDM/Problems Addressed:
Shortness of breath recurrent pleural effusion
Chronic conditions affecting care:
Cancer current effusion
Acute Exacerbation and/or Progression of Chronic Illness:
Cancer recurrent effusion
*Pulse Oximetry
SaO2: 97
Oxygen Mode of Delivery: Room air
Patient hypoxic: no
*Billing Specialist Interpretation
Rate: normal
Interpretation: normal
Heart Rate: 78
Rhythm: sinus
*Critical Care Note
Total Time (30-74mins, 75-104mins- exclusive of procedures): Not Applicable
Data Reviewed
Review of Other/Old Records Reveals: Labs, Records and Radiology Studies
Source: patient and spouse
Update Note
Update Note:
3:30 PM, blood pressure is little bit soft, chest x-ray noted to have reviewed case briefly with IR, they can do a thoracentesis today, additionally his hemoglobin has trended down will check type and screen, inquire about bloody stools, point we
will get his chest See how he does if he needs volume transfusion admission etc.
Patient returns from IR 1555 cc of bloody fluid from his chest removed by report looks like his vital signs are normalized, denies any bloody stools reviewed with patient he is anxious to go home feeling better
ED Attending Note
-
Portions of this chart may have been created with voice recognition software.� Occasional wrong word or��sound alike� substitutions may have occurred due to the inherent limitations of voice recognition software.
Discharge Plan
Departure
Patient Disposition: Home (Routine Discharge)
Date of Disposition: 10/05/24
Time of Disposition: 16:59
Patient with high blood pressure during this ER visit?: No
Condition: Good
Discharge Problem:
Pleural effusion on left
Instructions: Pleural effusion - Discharge instructions, When your lungs fill with fluid
Prescriptions:
No Action
Eliquis 5 MG tablet
5 mg PO BID
metoprolol succinate 25 MG tablet extended release 24 hr
25 mg PO BID Qty: 60 2RF
cyanocobalamin (vitamin B-12) 1,000 mcg Tablet
1,000 mcg PO DAILY
cod liver oil 240-1,000 mg Capsule
1 cap PO BID
magnesium oxide 400 mg magnesium Tablet
400 mg PO DAILY
levothyroxine 175 mcg Tablet
175 mcg PO HS
calcium carbonate [Calcium Antacid] 400 mg calcium (1,000 mg) Tablet,Chewable
400 mg PO DAILY
calcium carbonate [Calcium 600] 600 mg calcium (1,500 mg) Tablet
600 mg PO HS
Lenvima 10 mg/day (10 mg x 1) Capsule
10 mg PO DAILY
Referrals:
Higinio Agarwal MD [Family Provider, Internal Medicine] - Next open appointment
Iggy Jain DO [Active, Radiology] - Follow up in 10 days
Activity Restrictions/Additional Instructions:
Follow-up with your oncologist at [facility] in interventional radiology to discuss further treatment
Interventions
Interventions:
*Risk Screen - Suicide Last Done: 10/05/24 15:30
*General Assessment Last Done: 10/05/24 12:10
*Neglect/Abuse Screening Last Done: 10/05/24 15:30
*ED- Fall Risk Assessment Last Done: 10/05/24 15:30
*ED COVID-19 Vaccine History Last Done: 10/05/24 15:30
Discharge Date and Time
Print Language: CAMBODIAN
[2024-10-05 15:30] VITALS: BMI 32.2
[2024-10-05 15:36] VITALS: BP 109/75
[2024-10-05 16:00] VITALS: BP 112/67; BP_SYST 67
[2024-10-05 16:30] VITALS: BP 102/68
[2024-10-05 16:47] VITALS: BP 107/77
[2024-10-05 17:00] VITALS: BP 116/68
== END 2024-10-05 18:15 | disposition home or self-care (01) ==
LOC: EMR 12:00
PROVIDERS: Student in an Organized Health Care Education/Training Program; CONSULT PHYSICIAN Radiology Vascular & Interventional Radiology; EMERGENCY PHYSICIAN Emergency Medicine; FAMILY PHYSICIAN Internal Medicine
DX: J90 Pleural effusion, not elsewhere classified (principal); C73 Malignant neoplasm of thyroid gland; I10 Essential (primary) hypertension; Z79.69 Long term (current) use of other immunomodulators and immunosuppressants
CPT/HCPCS: 99285; 32555; 71045; 71046; 80053; 83880; 84484; 85025; 86850; 86900; 86901; 93005

== ENCOUNTER → 2024-10-20 08:41 | Outpatient (REF) | payer OTHER, SELFPAY ==
[2024-10-20 08:55] VITALS: BP 117/69; BP_SYST 84
[2024-10-20 09:17] VITALS: BP 99/68
[2024-10-20 09:28] VITALS: BP 109/76; BP_SYST 77
== END ==
LOC: RADI 08:41
PROVIDERS: ATTENDING PHYSICIAN Internal Medicine
DX: J90 Pleural effusion, not elsewhere classified (principal); I95.9 Hypotension, unspecified
CPT/HCPCS: 32555; 71045